=== PATIENT | female | born 1955 | race African-American/Black ===

== ENCOUNTER 2018-01-10 21:31 | Inpatient (IN) | payer OTHER ==
[2018-01-10] VITALS (14 sets, daily range): BP systolic 131–153; BP diastolic 70–82; PULSE 68–78; RESP 15–19; TEMP 99.6; O2SAT 97–100
[~2018-01-10] VITALS: Ht 162.6 cm; Wt 85.4 kg
[~2018-01-10 21:31] MED LIST: ASPI81 PO; METH750T2 PO; NORV5TAB PO
--- NOTE | 2018-01-10 22:10 | RADRPT ---
EXAM DATE/TIME: 01/10/2018 21:57 2 [facility] COMPARISON: CT BRAIN W/O CONTRAST, March 10, 2016, 8:49. INDICATIONS : Stroke alert; left sided weakness. RADIATION DOSE: 36.84 CTDIvol (mGy) This report was called by Dr. Kam to Dr. Lott at 10: 09 PM MEDICAL HISTORY : Non-responsive. SURGICAL HISTORY : Non-responsive. ENCOUNTER: Initial ACUITY: 1 day PAIN SCALE: Non-responsive LOCATION: cranial TECHNIQUE: Multiple contiguous axial images were obtained of the head. Using automated exposure control and adj ustment of the mA and/or kV according to patient size, radiation dose was kept as low as reasonably a chievable to obtain optimal diagnostic quality images. DICOM format image data is available electro nically for review and comparison. FINDINGS: CEREBRUM: The ventricles are normal for age. No evidence of midline shift, mass lesion, hemorrhage or acute in farction. No extra-axial fluid collections are seen. POSTERIOR FOSSA: The cerebellum and brainstem are intact. The 4th ventricle is midline. The cerebellopontine angle i s unremarkable. EXTRACRANIAL: The visualized portion of the orbits is intact. SKULL: The calvaria is intact. No evidence of skull fracture. CONCLUSION: Normal examination for a patient of this age. No significant change has occurred. Gerald Kam MD on January 10, 2018 at 22:06 Board Certified Radiologist. This report was verified electronically.
[2018-01-10] MEDS ORDERED: SODIUM CHLOR 0.9% 250 ML INJ 250 ML IV ONE (22:15)
[2018-01-10] MEDS ORDERED: IOHEXOL 350 MG/ML 10 ML VIAL (for RAD DIAG) IVCONTRAST ONE (22:15)
--- NOTE | 2018-01-10 22:23 | RADRPT ---
EXAM DATE/TIME: 01/10/2018 22:03 [facility] COMPARISON: No previous studies available for comparison. INDICATIONS : Stroke alert; left sided weakness. IV CONTRAST: 75 cc Omnipaque 350 (iohexol) IV ; Cumulative dose for multiple exams. RADIATION DOSE: 27.26 CTDIvol (mGy) ; Combined studies MEDICAL HISTORY : Non-responsive. SURGICAL HISTORY : Non-responsive. ENCOUNTER: Initial ACUITY: 1 day PAIN SCALE: Non-responsive LOCATION: cranial TECHNIQUE: Volumetric scanning was performed using a multi-row detector CT scanner. The data was post processed with a variety of visualization algorithms including full volume maximum intensity projection, multi -planar sliding thin slab reformation, curved planar reformation, and surface rendering techniques. Using automated exposure control and adjustment of the mA and/or kV according to patient size, radiat ion dose was kept as low as reasonably achievable to obtain optimal diagnostic quality images. DICO M format image data is available electronically for review and comparison. FINDINGS: There is excellent visualization of the major intracranial arteries out to the second-order branch ve ssels. There is no evidence for aneurysm, vessel truncation or stenosis, and no evidence for vascula r malformation. CONCLUSION: Normal examination for a patient of this age. Gerald Kam MD on January 10, 2018 at 22:18 Board Certified Radiologist. This report was verified electronically.
[2018-01-10] MEDS ORDERED: ASPIRIN 325 MG TAB PO ONE (22:30)
[2018-01-10] MEDS ORDERED: CLOPIDOGREL 75 MG TAB PO ONE (22:30)
[2018-01-10 22:32] LABS: AUTOMATED NEUTROPHIL # 12.1 TH/MM3 (1.8-7.7); BASOPHIL % 0.2 % (0.0-2.0); EOSINOPHIL % 0.1 % (0.0-4.0); HEMATOCRIT 34.3 % (35.0-46.0); HEMOGLOBIN 11.8 GM/DL (11.6-15.3); LYMPH % 7.4 % (9.0-44.0); MEAN CELL VOLUME 74.2 FL (80.0-100.0); MEAN CORPUSCULAR HEMOGLOBIN 25.5 PG (27.0-34.0); MEAN CORPUSCULAR HGB CONC 34.3 % (32.0-36.0); MEAN PLATELET VOLUME 7.5 FL (7.0-11.0); MONO % 4.5 % (0.0-8.0); MONOCYTE # 0.6 TH/MM3 (0-0.9); NEUT % 87.8 % (16.0-70.0); PLATELET COUNT 265 TH/MM3 (150-450); RED BLOOD COUNT 4.63 MIL/MM3 (4.00-5.30); WHITE BLOOD COUNT 13.8 TH/MM3 (4.0-11.0)
[2018-01-10] MEDS ORDERED: AMLO5 PO (22:32)
[2018-01-10] MEDS ORDERED: ASPI-516 CHEW (22:32)
--- NOTE | 2018-01-10 22:33 | RADRPT ---
EXAM DATE/TIME: 01/10/2018 22:03 [facility] COMPARISON: No previous studies available for comparison. INDICATIONS : Stroke alert; left sided weakness. IV CONTRAST: 75 cc Omnipaque 350 (iohexol) IV ; Cumulative dose for multiple exams. RADIATION DOSE: 27.26 CTDIvol (mGy) ; Combined studies MEDICAL HISTORY : Non-responsive. SURGICAL HISTORY : Non-responsive. ENCOUNTER: Initial ACUITY: 1 day PAIN SCALE: Non-responsive LOCATION: cranial Elevated flow velocities and ICA/CCA ratios have been found to correlate with increased degrees of vessel stenosis, calculated as percentage of diameter relative to a normal segment of distal ICA/CCA. TECHNIQUE: Volumetric scanning was performed using a multirow detector CT scanner. The data was post processed with a variety of visualization algorithms including full-volume maximum intensity projection, multip lanar sliding thin-slab reformation, curved-planar reformation, and surface-rendering techniques. Us ing automated exposure control and adjustment of the mA and/or kV according to patient size, radiatio n dose was kept as low as reasonably achievable to obtain optimal diagnostic quality images. DICOM f ormat image data is available electronically for review and comparison. FINDINGS: AORTIC ARCH: There is a three-vessel origin of the great vessels from the aorta. No evidence of ostial narrowing. RIGHT CAROTID: The common carotid artery is intact. The carotid bulb has a normal configuration without ulceration o r narrowing. The internal carotid artery lumen is smooth without stenosis. The external carotid faby ry is intact. LEFT CAROTID: The common carotid artery is intact. The carotid bulb has a normal configuration without ulceration or narrowing. The internal carotid artery lumen is smooth without stenosis. The external carotid ar linda is intact. VERTEBRALS: Dominant right vertebral. No stenotic lesions are seen. CONCLUSION: 1. No carotid stenosis. Minimal atherosclerotic disease within normal limits for age. Gerald Kam MD on January 10, 2018 at 22:30 Board Certified Radiologist. This report was verified electronically.
[2018-01-10 22:41] LABS: ALBUMIN 3.8 GM/DL (3.4-5.0); AST (GOT) 15 U/L (15-37); BICARBONATE 26.6 MEQ/L (21.0-32.0); BLOOD UREA NITROGEN 11 MG/DL (7-18); CALCIUM 9.4 MG/DL (8.5-10.1); CHLORIDE 106 MEQ/L (98-107); CREATININE 0.97 MG/DL (0.50-1.00); GLOMERULAR FILTRATION RATE 70 ML/MIN (>89); GLUCOSE,RANDOM 105 MG/DL (74-106); SODIUM (NA) 142 MEQ/L (136-145)
[2018-01-10 22:42] LABS: ALT (GPT) 15 U/L (10-53)
[2018-01-10 22:45] LABS: ALKALINE PHOSPHATASE 118 U/L (45-117); TOTAL BILIRUBIN ADULT 0.5 MG/DL (0.2-1.0); TOTAL PROTEIN 7.8 GM/DL (6.4-8.2); TROPONIN I LESS THAN 0.02 NG/ML (0.02-0.05)
--- NOTE | 2018-01-10 22:58 | PD ---
HPI Chief Complaint: Stroke Alert Time Seen by Provider: 21:53 Travel History International Travel<30 days: No Contact w/Intl Traveler<30days: No Traveled to known affect area: No History of Present Illness HPI Patient is a 62-year-old female who today around 2:00 in the afternoon which is 9 hours prior to arrival in the ER had weakness in her left hand and felt her left leg was dragging. 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 And then around 230 she was seen by her family who then reports that this was a new onset she has had mild dysphasia but she has complete comprehension and she speaks in full sentences she is holding her neck slightly off to the left and she has a 3 out of 5 strength in her left hand and a 4 out of 5 left leg. She is able to follow commands eyes opening and closing she is able to cross midline she is outside of the window over 8 hours ago due to her symptoms begin I called Dr. Mathis to activate stroke alert CAT scan was done which was negative CTA of head and neck is done that is also negative she will be admitted I speak with Dr. Mathis about giving her fluid giving her and giving her Plavix and aspirin and admitting her and then having her have an MRI of the brain in the morning we are to keep the bed flat and 75 cc an hour of normal saline will run through the night PFS Past Medical History Blood Disorders: No Cerebrovascular Accident: Yes (1999 & "last year") Diminished Hearing: No Hypertension: Yes Immunizations Current: Yes ?: Not : 5 Para: 5 Past Surgical History Hysterectomy: Yes Other Surgery: Yes (cervical fusion) Social History Alcohol Use: No Tobacco Use: No Substance Use: No Allergies-Medications (Allergen,Severity, Reaction): Coded Allergies: amoxicillin (Unverified Allergy, Severe, HIVES, 01/10/18) clopidogrel (Unverified Allergy, Severe, TONGUE SWELLING, 01/10/18) Uncoded Allergies: APPLE JUICE (Allergy, Unknown, Hives, 12/22/07) Reported Meds & Prescriptions Reported Meds & Active Scripts Active Reported Norvasc (Amlodipine Besylate) 5 Mg Tab 5 Mg PO DAILY Review of Systems Except as stated in HPI: all other systems reviewed are Neg Musculoskeletal: Positive: Weakness Neurologic: Positive: Weakness (Focal weakness left arm and left leg started over 8 hours ago prior to arrival at the ER) Physical Exam Narrative GENERAL: leaning to the left speaking haltedly but in full sentences SKIN: Warm and dry. HEAD: Atraumatic. Normocephalic. EYES: Pupils equal and round. No scleral icterus. No injection or drainage. will cross midline to the left with eyes only when I hold her head still but otherwise she turns her entire head towards my voice on left ENT: No nasal bleeding or discharge. Mucous membranes pink and moist. NECK: Trachea midline. No JVD. weakness to left shoulder shrug CARDIOVASCULAR: Regular rate and rhythm. RESPIRATORY: No accessory muscle use. Clear to auscultation. Breath sounds equal bilaterally. GASTROINTESTINAL: Abdomen soft, non-tender, nondistended. Hepatic and splenic margins not palpable. MUSCULOSKELETAL: weakness 3/5 in left No obvious deformities. NEUROLOGICAL: Awake and alert. Neuro exam she has a decreased grain shoveler on her left hand she has a decreased shrug on her left shoulder and she is unable to fully hold the arm up against gravity she can do it for a moment but then it comes down it is about 3 out of 5 her leg is 4 out of 5 on the left she has no sensory deficit no aphasia no comprehension problems she is able to cross midline with her eyes and a symmetric smile symmetric eyebrow raise. Data Data Last Documented VS Vital Signs Date Time Temp Pulse Resp B/P (MAP) Pulse Ox O2 Delivery O2 Flow Rate FiO2 01/11/18 00:30 72 20 130/62 (84) 100 Room Air 01/10/18 21:52 21 01/10/18 21:32 99.6 Orders Orders Complete Blood Count With Diff (01/10/18 21:54) Comprehensive Metabolic Panel (01/10/18 21:54) Troponin I (01/10/18 21:54) Urinalysis - C+S If Indicated (01/10/18 21:54) Ct Brain W/O Iv Contrast(Rout) (01/10/18 21:54) Ecg Monitoring (01/10/18 21:54) Iv Access Insert/Monitor (01/10/18 21:54) Oximetry (01/10/18 21:54) Sodium Chloride 0.9% Flush (Ns Flush) (01/10/18 22:00) Fibrinogen (01/10/18 21:55) Cta Neck W Iv Contrast W 3d (01/10/18 ) Cta Brain W Iv Contrast W 3d (01/10/18 ) Sodium Chlor 0.9% 250 Ml Inj (Ns 250 Ml (01/10/18 22:15) Iohexol 350 Inj (Omnipaque 350 Inj) (01/10/18 22:15) I-Stat Profile (01/10/18 21:54) Clopidogrel (Plavix) (01/10/18 22:30) Aspirin (Aspirin) (01/10/18 22:30) Sodium Chlor 0.9% 1000 Ml Inj (Ns 1000 M (01/10/18 22:45) Admit Order (Ed Use Only) (01/11/18 00:55) Labs Laboratory Tests Test 01/10/18 21:52 01/10/18 23:45 White Blood Count 13.8 TH/MM3 Red Blood Count 4.63 MIL/MM3 Hemoglobin 11.8 GM/DL Bedside Hemoglobin 12.9 G/DL Hematocrit 34.3 % Bedside Hematocrit 38.0 % Mean Corpuscular Volume 74.2 FL Mean Corpuscular Hemoglobin 25.5 PG Mean Corpuscular Hemoglobin Concent 34.3 % Red Cell Distribution Width 15.0 % Platelet Count 265 TH/MM3 Mean Platelet Volume 7.5 FL Neutrophils (%) (Auto) 87.8 % Lymphocytes (%) (Auto) 7.4 % Monocytes (%) (Auto) 4.5 % Eosinophils (%) (Auto) 0.1 % Basophils (%) (Auto) 0.2 % Neutrophils # (Auto) 12.1 TH/MM3 Lymphocytes # (Auto) 1.0 TH/MM3 Monocytes # (Auto) 0.6 TH/MM3 Eosinophils # (Auto) 0.0 TH/MM3 Basophils # (Auto) 0.0 TH/MM3 CBC Comment DIFF FINAL Differential Comment Fibrinogen 442 mg/dL Bedside Sodium 143 MMOL/L Blood Urea Nitrogen 11 MG/DL Creatinine 0.97 MG/DL Random Glucose 105 MG/DL Total Protein 7.8 GM/DL Albumin 3.8 GM/DL Calcium Level 9.4 MG/DL Alkaline Phosphatase 118 U/L Aspartate Amino Transf (AST/SGOT) 15 U/L Alanine Aminotransferase (ALT/SGPT) 15 U/L Total Bilirubin 0.5 MG/DL Sodium Level 142 MEQ/L Potassium Level 3.6 MEQ/L Chloride Level 106 MEQ/L Carbon Dioxide Level 26.6 MEQ/L Bedside Potassium 3.7 MMOL/L Bedside Chloride 105 MMOL/L Anion Gap 9 MEQ/L Bedside Blood Urea Nitrogen 10 MG/DL Bedside Creatinine 1.0 MG/DL Estimat Glomerular Filtration Rate 70 ML/MIN Bedside Glucose 113 MG/DL Troponin I LESS THAN 0.02 NG/ML Urine Color LIGHT-YELLOW Urine Turbidity CLEAR Urine pH 7.0 Urine Specific [place] 1.044 Urine Protein NEG mg/dL Urine Glucose (UA) NEG mg/dL Urine Ketones 10 mg/dL Urine Occult Blood SMALL Urine Nitrite NEG Urine Bilirubin NEG Urine Urobilinogen LESS THAN 2.0 MG/DL Urine Leukocyte Esterase MOD Urine RBC 3 /hpf Urine WBC 2 /hpf Urine Squamous Epithelial Cells <1 /hpf Urine Transitional Epithelial Cells <1 /hpf Microscopic Urinalysis Comment CATH-CULT NOT IND MDM Medical Decision Making Medical Screen Exam Complete: Yes Emergency Medical Condition: Yes Medical Record Reviewed: Yes Differential Diagnosis Differential diagnosis includes hypoglycemia Michel's paralysis CVA ischemic stroke hemorrhagic stroke Narrative Course I activate stroke alert I speak to Dr. Mathis Neurology . CT of head negative CTA head and neck negative we discussed admitting and giving her fluid keeping her bed flat giving her Plavix 75 aspirin 325 and having him see her in the a.m. MRI of the head will be ordere as well admit.... she is well outside of time constraint to give tPa thrombolytics Diagnosis Primary Impression: CVA (cerebral vascular accident) Qualified Codes: I63.9 - Cerebral infarction, unspecified Scripts Dipyridamole-Aspirin (Aggrenox) 200-25 Mg Cap 1 CAP PO BID for Blood Clot Prevention, #42 CAP 0 Refills Prov: Cookie Cali 01/13/18 Asim Lott MD Jan 10, 2018 22:58
[2018-01-10] MEDS: SODIUM CHLOR 0.9% 1000 ML INJ 1,000 ML IV SCH (23:32)
[2018-01-10] MEDS: SODIUM CHLORIDE 0.9% FLUSH 10 ML FLUSH IVF PRN (23:34)
[2018-01-11] VITALS (11 sets, daily range): BP systolic 116–145; BP diastolic 62–76; PULSE 66–72; RESP 16–20; TEMP 98–98.9; O2SAT 97–100
[2018-01-11 00:11] LABS: BILIRUBIN, URINE NEG (NEG); BLOOD, URINE SMALL (NEG); GLUCOSE,URINE NEG (NEG); KETONE, URINE 10 mg/dL (NEG); NITRITE,URINE NEG (NEG); SQUAMOUS EPITHELIAL CELL URINE <1 /hpf (0-5); TRANSITIONAL EPI CELLS, URINE <1 /hpf; URINE COLOR LIGHT-YELLOW (YELLW/STRAW); URINE LEUKOCYTE ESTERASE MOD (NEG)
--- NOTE | 2018-01-11 08:35 | MH ---
cc: REX FISH M.D. DATE OF ADMISSION 01/11/2018 ADMISSION DIAGNOSIS 1. CVA with left-sided weakness. 2. Hypertension. 3. Obesity. 4. Hyperlipidemia. PERTINENT HISTORY This is a 62-year-old black female who came to the emergency room last evening with symptoms of left-sided weakness. She started in the afternoon around 2:00 p.m. with weakness in her left arm and her left leg was dragging. 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 She was seen by her family and it is noted she had a little trouble with her speech. She did not come to the ER until around 9:30 and was evaluated. She had symptoms of a stroke. The ER physician talked with Dr. Mathis, neurologist. Her CT brain scan was negative. CTA of the head and neck was negative. She was given aspirin in the ED 325 mg. An MRI of the brain was ordered which has not been done yet. She was put on 75 cc of normal saline. She was admitted for probable stroke. PAST MEDICAL HISTORY 1. Stroke in 1999 and 1015 with no obvious residual symptoms. 2. Hypertension. 3. Hyperlipidemia. 4. Vitamin-D deficiency in the past. 5. Osteoarthritis. 6. Atherosclerosis of the aorta on prior imaging. She denies any heart disease, lung disease, liver or kidney disease. No peptic ulcer disease or colon disease. No thyroid disease or cancer. No seizures. PAST SURGICAL HISTORY 1. Cervical fusion. 2. JAREN and BSO. ALLERGIES 1. PLAVIX; APPARENTLY CAUSED HER TONGUE TO SWELL. 2. AMOXICILLIN. MEDICATIONS 1. Amlodipine 5 mg a day. 2. Aspirin 81 mg a day. 3. Atorvastatin 10 mg a day. 4. Her EEA chart had her on ergocalciferol 50,000 units once a week. FAMILY HISTORY Her mother and father are living. Mother is 82, has had a heart attack and hypertension. Father is living at 85, has had prior stroke, heart attack and hypertension. SOCIAL HISTORY She is . She has had five children. She does not use alcohol, has never smoked. Works as a operating room aide at [employer] REVIEW OF SYSTEMS GENERAL: No fever, chills, sweats. Denies any headache. HEENT: No visual complaints or sore throat or runny nose. CARDIOVASCULAR: No chest pain, orthopnea, PND or palpitations. PULMONARY: No cough, hemoptysis, wheezing. GASTROINTESTINAL: No nausea, vomiting, abdominal pain, rectal bleeding or constipation. GENITOURINARY: No dysuria, urgency, frequency. MUSCULOSKELETAL: No complaint of swelling or pain. PSYCHIATRIC: Without complaints. NEUROLOGIC: As mentioned. PHYSICAL EXAMINATION GENERAL: A pleasant black female in no distress. She appears to be alert and oriented. VITAL SIGNS: Most recent vital signs are temperature 98.7, BP 145/70, respirations 17, pulse 68 and regular. O2 sat 97% on room air. HEENT: TMs clear. Pupils equal. No scleral icterus. Nose negative. Mouth with upper dentures, no lesions. Tongue midline. NECK: Without JVD. No bruit. HEART: Regular rate and rhythm. No murmurs. LUNGS: Clear. ABDOMEN: Soft, nontender, no masses. EXTREMITIES: Pulses 2+ in both feet. No edema. NEUROLOGIC: She has significant weakness in the left arm and hand and left lower leg. She had difficulty even moving them. Cranial nerves appear intact. She is alert and oriented. LABORATORY Last night her white count was 13.8, hemoglobin 11.8. Electrolytes, BUN and creatinine were normal, random glucose 113. AST, ALT and alkaline phosphatase normal. Troponin less than 0.02. Total protein and albumin normal. Bilirubin normal. Urinalysis just showed 3 rbc's, [address] brain scan was negative. CTA of the neck was negative. CTA of the head was negative. ASSESSMENT As noted. PLAN The patient has been admitted. A consult with neurology has been obtained. MRI brain will be done today. Will order a 2-D echo. She will be continued on her statin drug. Her blood pressure medicine was not resumed last night and her blood pressure is adequate. She is at bedrest with head of bed slightly elevated. She has HEAVENLY hose and SCDs on for DVT prophylaxis. MD YAN España/AMRITA /6:22 AM /8:01 AM
--- NOTE | 2018-01-11 08:45 | HHI.HP ---
HPI Service [facility] Hospitalists Primary Care Physician Shady Mosher MD Admission Diagnosis CVA Travel History International Travel<30 Days: No Contact w/Intl Traveler <30 Da: No Traveled to Known Affected Are: No History of Present Illness This is a 63-year-old AA female with a past medical history includes hypertension, prior CVA 2 and prior [place]. Patient symptoms started around 2:00 PM yesterday (01/10). Patient began having weakness in her left hand and felt that her left leg was dragging. 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 Then around 2:30PM she was seen by her family who noticed that she mild dysphasia. Upon arrival to the ER patient was holding her neck slightly off to the left and she had a 3 out of 5 strength in her left hand and a 4 out of 5 left leg. She was able to follow commands eyes opening and closing she is able to cross midline she was outside of the TPA. Dr. Mathis to activate stroke alert CT scan was done which was negative CTA of head and neck is done that is also negative she was admitted given her fluids, Plavix and aspirin Plan for patient to have an MRI of the brain in this morning. Past Family Social History Past Medical History Hypertension History of CVA 2 no residual deficits History of [place] Past Surgical History Status post hysterectomy Status post anterior cervical decompression C3/C4, microdiscectomy with fusion secondary to herniated nucleus pulposus with cervical radiculopathy bilaterally Reported Medications Aspirin 81 Mg Chew 81 Mg CHEW DAILY Norvasc (Amlodipine Besylate) 5 Mg Tab 5 Mg PO DAILY Allergies: Coded Allergies: amoxicillin (Unverified Allergy, Severe, HIVES, 01/10/18) clopidogrel (Unverified Allergy, Severe, TONGUE SWELLING, 01/10/18) Uncoded Allergies: APPLE JUICE (Allergy, Unknown, Hives, 12/22/07) Family History Father with CVA and [place] Social History Works as a assistant men's soccer coach No tobacco, alcohol or IV drug use Physical Exam Vital Signs Vital Signs Date Time Temp Pulse Resp B/P (MAP) Pulse Ox O2 Delivery O2 Flow Rate FiO2 01/11/18 05:05 98.7 68 17 145/70 (95) 97 01/11/18 03:01 73 19 133/66 (88) 98 01/11/18 02:00 72 20 128/65 (86) 98 Room Air 01/11/18 01:30 70 18 123/62 (82) 99 Room Air 01/11/18 01:00 72 18 128/66 (86) 99 Room Air 01/11/18 00:30 72 20 130/62 (84) 100 Room Air 01/11/18 00:00 70 16 136/76 (96) 99 Room Air 01/10/18 23:45 72 19 149/78 (101) 98 Room Air 01/10/18 23:30 69 17 141/72 (95) 97 Room Air 01/10/18 23:15 70 18 143/72 (95) 98 Room Air 01/10/18 23:00 74 15 148/80 (102) 98 Room Air 01/10/18 22:45 68 16 146/74 (98) 97 Room Air 01/10/18 22:30 72 16 144/76 (98) 98 Room Air 01/10/18 22:15 74 18 150/72 (98) 100 Room Air 01/10/18 22:13 78 19 153/74 (100) 100 Room Air 01/10/18 22:05 71 16 131/71 (91) 100 Room Air 01/10/18 22:00 69 18 133/70 (91) 100 Room Air 01/10/18 21:55 71 16 136/71 (92) 100 Room Air 01/10/18 21:52 100 21 01/10/18 21:50 78 15 98 01/10/18 21:32 99.6 76 16 137/82 (100) 98 Room Air Laboratory Laboratory Tests Test 01/10/18 21:52 01/10/18 23:45 White Blood Count 13.8 Red Blood Count 4.63 Hemoglobin 11.8 Bedside Hemoglobin 12.9 Hematocrit 34.3 Bedside Hematocrit 38.0 Mean Corpuscular Volume 74.2 Mean Corpuscular Hemoglobin 25.5 Mean Corpuscular Hemoglobin Concent 34.3 Red Cell Distribution Width 15.0 Platelet Count 265 Mean Platelet Volume 7.5 Neutrophils (%) (Auto) 87.8 Lymphocytes (%) (Auto) 7.4 Monocytes (%) (Auto) 4.5 Eosinophils (%) (Auto) 0.1 Basophils (%) (Auto) 0.2 Neutrophils # (Auto) 12.1 Lymphocytes # (Auto) 1.0 Monocytes # (Auto) 0.6 Eosinophils # (Auto) 0.0 Basophils # (Auto) 0.0 CBC Comment DIFF FINAL Differential Comment Fibrinogen 442 Bedside Sodium 143 Blood Urea Nitrogen 11 Creatinine 0.97 Random Glucose 105 Total Protein 7.8 Albumin 3.8 Calcium Level 9.4 Alkaline Phosphatase 118 Aspartate Amino Transf (AST/SGOT) 15 Alanine Aminotransferase (ALT/SGPT) 15 Total Bilirubin 0.5 Sodium Level 142 Potassium Level 3.6 Chloride Level 106 Carbon Dioxide Level 26.6 Bedside Potassium 3.7 Bedside Chloride 105 Anion Gap 9 Bedside Blood Urea Nitrogen 10 Bedside Creatinine 1.0 Estimat Glomerular Filtration Rate 70 Bedside Glucose 113 Troponin I LESS THAN 0.02 Urine Color LIGHT-YELLOW Urine Turbidity CLEAR Urine pH 7.0 Urine Specific [place] 1.044 Urine Protein NEG Urine Glucose (UA) NEG Urine Ketones 10 Urine Occult Blood SMALL Urine Nitrite NEG Urine Bilirubin NEG Urine Urobilinogen LESS THAN 2.0 Urine Leukocyte Esterase MOD Urine RBC 3 Urine WBC 2 Urine Squamous Epithelial Cells <1 Urine Transitional Epithelial Cells <1 Microscopic Urinalysis Comment CATH-CULT NOT IND Result Diagram: 01/10/18215101/10/182151 Imaging Last Impressions Head CT 01/10/182153 Signed Impressions: Service Date/Time: December 21:57 - CONCLUSION: Normal examination for a patient of this age. No significant change has occurred. Gerald Kam MD Neck CTA 01/10/18 0000 Signed Impressions: Service Date/Time: December 22:03 - CONCLUSION: 1. No carotid stenosis. Minimal atherosclerotic disease within normal limits for age. Gerald Kam MD Head CTA 01/10/18 0000 Signed Impressions: Service Date/Time: December 22:03 - CONCLUSION: Normal examination for a patient of this age. Gerald Kam MD Caprini VTE Risk Assessment Caprini VTE Risk Assessment: Mod/High Risk (score >= 2) Caprini Risk Assessment Model Point Value = 1 Point Value = 2 Point Value = 3 Point Value = 5 Age 41-60 Minor surgery BMI > 25 kg/m2 Swollen legs Varicose veins or History of unexplained or recurrent spontaneous Oral contraceptives or hormone replacement Sepsis (< 1 month) Serious lung disease, including pneumonia (< 1 month) Abnormal pulmonary function Acute myocardial infarction Congestive heart failure (< 1 month) History of inflammatory bowel disease Medical patient at bed rest Age 61-74 Arthroscopic surgery Major open surgery (> 45 min) Laparoscopic surgery (> 45 min) Malignancy Confined to bed (> 72 hours) Immobilizing plaster cast Central venous access Age >= 75 History of VTE Family history of VTE Factor V Leiden Prothrombin [id number] Lupus anticoagulant Anticardiolipin antibodies Elevated serum homocysteine Heparin-induced thrombocytopenia Other congenital or acquired thrombophilia Stroke (< 1 month) Elective arthroplasty Hip, pelvis, or leg fracture Acute spinal cord injury (< 1 month) Prophylaxis Regimen Total Risk Factor Score Risk Level Prophylaxis Regimen 0-1 Low Early ambulation 2 Moderate Order ONE of the following: *Sequential Compression Device (SCD) *Heparin 5000 units SQ BID 3-4 Higher Order ONE of the following medications: *Heparin 5000 units SQ TID *Enoxaparin/Lovenox 40 mg SQ daily (WT < 150 kg, CrCl > 30 mL/min) *Enoxaparin/Lovenox 30 mg SQ daily (WT < 150 kg, CrCl > 10-29 mL/min) *Enoxaparin/Lovenox 30 mg SQ BID (WT < 150 kg, CrCl > 30 mL/min) AND/OR *Sequential Compression Device (SCD) 5 or more Highest Order ONE of the following medications: *Heparin 5000 units SQ TID (Preferred with Epidurals) *Enoxaparin/Lovenox 40 mg SQ daily (WT < 150 kg, CrCl > 30 mL/min) *Enoxaparin/Lovenox 30 mg SQ daily (WT < 150 kg, CrCl > 10-29 mL/min) *Enoxaparin/Lovenox 30 mg SQ BID (WT < 150 kg, CrCl > 30 mL/min) AND *Sequential Compression Device (SCD) Assessment and Plan Problem List: (1) CVA (cerebral vascular accident) ICD Codes: I63.9 - Cerebral infarction, unspecified Status: Acute Plan: CT of the head reviewed and revealed normal exam for patient of this age no significant changes occurred. CTA of the neck reviewed and reveals no carotid stenosis minimal atherosclerotic disease within normal limits for age CT of the head reviewed and reveals normal examination for patient of this age MRI ordered and pending Echocardiogram pending NPO Head of bed flat Normal saline at 75 cc/h Neurology has been consulted PT/OT and Speech requested (2) Hypertension ICD Codes: I10 - Essential (primary) hypertension Status: Chronic Plan: allow permissive HTN (3) CAD (coronary artery disease) ICD Codes: I25.10 - Atherosclerotic heart disease of [place] coronary artery without angina pectoris Plan: Continue patient Plavix and aspirin Physician Certification 2 Midnight Certification Type: Admission for Inpatient Services Order for Inpatient Services The services are ordered in accordance with Medicare regulations or non- Medicare payer requirements, as applicable. In the case of services not specified as inpatient-only, they are appropriately provided as inpatient services in accordance with the 2-midnight benchmark. Estimated LOS (days): 3 days is the estimated time the patient will need to remain in the hospital, assuming treatment plan goals are met and no additional complications. Post-Hospital Plan: Not yet determined Cookie Cali Jan 11, 2018 08:45
[2018-01-11] MEDS ORDERED: ASPIRIN EC 325 MG TABEC PO SCH (09:00)
[2018-01-11] MEDS: SODIUM CHLOR 0.9% 1000 ML INJ 1,000 ML IV SCH (09:00)
[2018-01-11] MEDS: SODIUM CHLORIDE 0.9% FLUSH 10 ML FLUSH IVF PRN (09:01)
[2018-01-11] MEDS: LORazepam 2 MG/ML VIAL IV PUSH PRN ×2 (11:03→20:06)
[2018-01-11] MEDS: ATORVASTATIN 40 MG TAB PO SCH (11:03)
--- NOTE | 2018-01-11 12:23 | RADRPT ---
EXAM DATE/TIME: 01/11/2018 11:37 [facility] COMPARISON: No previous studies available for comparison. INDICATIONS : Left sided weakness. MEDICAL HISTORY : Hypertension. SURGICAL HISTORY : Fusion, cervical. Hysterectomy. ENCOUNTER: Subsequent ACUITY: 2 day PAIN SCORE: 0/10 LOCATION: cranial TECHNIQUE: Multiplanar, multisequence MRI of the brain was performed without contrast. FINDINGS: CEREBRUM: The ventricles are normal for age. No evidence of midline shift, mass lesion, hemorrhage or acute in farction. No extraaxial fluid collections are seen. The pituitary gland and suprasellar cistern are normal in configuration. WHITE MATTER: There were minimal punctate areas of periventricular and subcortical white matter signal change. POSTERIOR FOSSA: The cerebellum and brainstem demonstrate no abnormality. The 4th ventricle is midline. The cerebello pontine angle is unremarkable. The cerebellar tonsils are normal in position. DIFFUSION IMAGING: No focal areas of restricted diffusion are seen. No evidence of acute infarction. EXTRACRANIAL: The visualized portions of the orbits and paranasal sinuses are unremarkable. CONCLUSION: No acute intracranial abnormality is identified. There are no findings to indicate recent ischemia. Oscar Dave MD on January 11, 2018 at 12:17 Board Certified Radiologist. This report was verified electronically.
--- NOTE | 2018-01-11 17:11 | HHI.PR ---
Subjective Remarks Patient continues to have left upper and lower extremity weakness Speech slow but clear Patient offers no new complaints Objective Vitals Vital Signs Date Time Temp Pulse Resp B/P (MAP) Pulse Ox O2 Delivery O2 Flow Rate FiO2 01/11/18 12:00 98.5 71 16 116/72 (87) 99 01/11/18 08:00 98.9 68 18 122/71 (88) 98 01/11/18 05:05 98.7 68 17 145/70 (95) 97 01/11/18 03:01 73 19 133/66 (88) 98 01/11/18 02:00 72 20 128/65 (86) 98 Room Air 01/11/18 01:30 70 18 123/62 (82) 99 Room Air 01/11/18 01:00 72 18 128/66 (86) 99 Room Air 01/11/18 00:30 72 20 130/62 (84) 100 Room Air 01/11/18 00:00 70 16 136/76 (96) 99 Room Air 01/10/18 23:45 72 19 149/78 (101) 98 Room Air 01/10/18 23:30 69 17 141/72 (95) 97 Room Air 01/10/18 23:15 70 18 143/72 (95) 98 Room Air 01/10/18 23:00 74 15 148/80 (102) 98 Room Air 01/10/18 22:45 68 16 146/74 (98) 97 Room Air 01/10/18 22:30 72 16 144/76 (98) 98 Room Air 01/10/18 22:15 74 18 150/72 (98) 100 Room Air 01/10/18 22:13 78 19 153/74 (100) 100 Room Air 01/10/18 22:05 71 16 131/71 (91) 100 Room Air 01/10/18 22:00 69 18 133/70 (91) 100 Room Air 01/10/18 21:55 71 16 136/71 (92) 100 Room Air 01/10/18 21:52 100 21 01/10/18 21:50 78 15 98 01/10/18 21:32 99.6 76 16 137/82 (100) 98 Room Air 01/11/18 01/11/18 01/12/18 15:00 23:00 07:00 Intake Total 905 ml Balance 905 ml Intake IV Total 905 ml Result Diagram: 01/10/18215101/10/182151 Other Results Laboratory Tests Test 01/10/18 21:52 01/10/18 23:45 White Blood Count 13.8 TH/MM3 Red Blood Count 4.63 MIL/MM3 Hemoglobin 11.8 GM/DL Bedside Hemoglobin 12.9 G/DL Hematocrit 34.3 % Bedside Hematocrit 38.0 % Mean Corpuscular Volume 74.2 FL Mean Corpuscular Hemoglobin 25.5 PG Mean Corpuscular Hemoglobin Concent 34.3 % Red Cell Distribution Width 15.0 % Platelet Count 265 TH/MM3 Mean Platelet Volume 7.5 FL Neutrophils (%) (Auto) 87.8 % Lymphocytes (%) (Auto) 7.4 % Monocytes (%) (Auto) 4.5 % Eosinophils (%) (Auto) 0.1 % Basophils (%) (Auto) 0.2 % Neutrophils # (Auto) 12.1 TH/MM3 Lymphocytes # (Auto) 1.0 TH/MM3 Monocytes # (Auto) 0.6 TH/MM3 Eosinophils # (Auto) 0.0 TH/MM3 Basophils # (Auto) 0.0 TH/MM3 CBC Comment DIFF FINAL Differential Comment Fibrinogen 442 mg/dL Bedside Sodium 143 MMOL/L Blood Urea Nitrogen 11 MG/DL Creatinine 0.97 MG/DL Random Glucose 105 MG/DL Total Protein 7.8 GM/DL Albumin 3.8 GM/DL Calcium Level 9.4 MG/DL Alkaline Phosphatase 118 U/L Aspartate Amino Transf (AST/SGOT) 15 U/L Alanine Aminotransferase (ALT/SGPT) 15 U/L Total Bilirubin 0.5 MG/DL Sodium Level 142 MEQ/L Potassium Level 3.6 MEQ/L Chloride Level 106 MEQ/L Carbon Dioxide Level 26.6 MEQ/L Bedside Potassium 3.7 MMOL/L Bedside Chloride 105 MMOL/L Anion Gap 9 MEQ/L Bedside Blood Urea Nitrogen 10 MG/DL Bedside Creatinine 1.0 MG/DL Estimat Glomerular Filtration Rate 70 ML/MIN Bedside Glucose 113 MG/DL Troponin I LESS THAN 0.02 NG/ML Urine Color LIGHT-YELLOW Urine Turbidity CLEAR Urine pH 7.0 Urine Specific [place] 1.044 Urine Protein NEG mg/dL Urine Glucose (UA) NEG mg/dL Urine Ketones 10 mg/dL Urine Occult Blood SMALL Urine Nitrite NEG Urine Bilirubin NEG Urine Urobilinogen LESS THAN 2.0 MG/DL Urine Leukocyte Esterase MOD Urine RBC 3 /hpf Urine WBC 2 /hpf Urine Squamous Epithelial Cells <1 /hpf Urine Transitional Epithelial Cells <1 /hpf Microscopic Urinalysis Comment CATH-CULT NOT IND Imaging Last Impressions Head CT 01/10/182153 Signed Impressions: Service Date/Time: December 21:57 - CONCLUSION: Normal examination for a patient of this age. No significant change has occurred. Gerald Kam MD Neck CTA 01/10/18 0000 Signed Impressions: Service Date/Time: December 22:03 - CONCLUSION: 1. No carotid stenosis. Minimal atherosclerotic disease within normal limits for age. Gerald Kam MD Head CTA 01/10/18 0000 Signed Impressions: Service Date/Time: December 22:03 - CONCLUSION: Normal examination for a patient of this age. Gerald Kam MD Objective Remarks GENERAL: This is a well-nourished, well-developed patient CARDIOVASCULAR: Regular rate and rhythm RESPIRATORY: Clear to auscultation. Breath sounds equal bilaterally. GASTROINTESTINAL: Abdomen soft, non-tender, nondistended. Normal active bowel sounds MUSCULOSKELETAL: Extremities without clubbing, cyanosis, or edema. NEURO: Alert & Oriented. left upper extremity 3/5, left lower extremity 1/5. speech slow but clear A/P Problem List: (1) CVA (cerebral vascular accident) ICD Codes: I63.9 - Cerebral infarction, unspecified Status: Acute Plan: CT of the head reviewed and revealed normal exam for patient of this age no significant changes occurred. CTA of the neck reviewed and reveals no carotid stenosis minimal atherosclerotic disease within normal limits for age CT of the head reviewed and reveals normal examination for patient of this age MRI revealed no acute intracranial abnormality is identified. There are no findings to indicate recent ischemia. Echocardiogram pending NPO awaiting speech therapy Head of bed flat Normal saline at 75 cc/h Neurology has been consulted PT/OT and Speech requested (2) Hypertension ICD Codes: I10 - Essential (primary) hypertension Status: Chronic Plan: allow permissive HTN (3) CAD (coronary artery disease) ICD Codes: I25.10 - Atherosclerotic heart disease of [place] coronary artery without angina pectoris Plan: Continue patient on aspirin. Unable to start Plavix patient is allergic and has had tongue swelling with Plavix in the past Assessment and Plan Patient examined. Assessment and plan formulated with Cookie Cali PA-C. I agree with the above. Pt with continued left sided weakness. plavix allergy Pt started on Aggrenox per Neurology continue PT Pt will need SNF or acute rehab at the conclusion of current hospitalization. Cookie Cali Jan 11, 2018 17:11 Torres Flores DO Jan 11, 2018 23:38
[2018-01-11] MEDS ORDERED: SODIUM CHLORIDE 0.9% FLUSH 10 ML FLUSH IV FLUSH PRN (18:45)
[2018-01-11] MEDS ORDERED: DEXTROSE 50% IN WATER 50 ML VIAL(D50) IV PUSH PRN (18:45)
[2018-01-11] MEDS ORDERED: GLUCAGON 1 MG/ML VIAL OTHER PRN (18:45)
--- NOTE | 2018-01-11 19:28 | MB ---
cc: ROSITA DUGGAN DATE OF CONSULTATION 01/11/18 REASON FOR CONSULTATION Stroke HISTORY OF PRESENT ILLNESS Ms. Gunderson is a 62-year-old female who developed the acute onset of left-sided weakness yesterday around 2 o'clock in the afternoon. She was weak in the left hand and the left leg was dragging. She came into the hospital as a stroke alert. She was outside of the window for t-PA in that the episodes were about 8 or 9 hours prior to arrival. Her symptoms she feels are slightly better today. PAST MEDICAL HISTORY 1. History of stroke in the past in the year 1999 and a year ago, 2. Hysterectomy, 3. Cervical fusion ALLERGIES AMOXICILLIN PLAVIX MEDICATIONS At home, 1. Aspirin 81 mg daily. 2. Norvasc 5 mg daily. NEUROLOGIC EXAMINATION VITAL SIGNS: Blood pressure 133/76, pulse is 66, respiratory rate is 16, temperature 98 degrees. Higher cortical function - alert, oriented. Speech is normal. Cranial nerves intact. Motor exam 4/5 strength of left arm and left leg proximally and distally with decreased fine motor skills left hand. Normal strength on the right. Reflexes are 2+ symmetric. IMAGING STUDIES CT scan of the brain is within normal limits. CTA of the brain is normal. CTA neck - no significant stenosis. Brain MRI - no acute change is present. No acute stroke. LABORATORY DATA The white count is 13,800, hemoglobin 11.8, hematocrit 34%, platelet count 265,000. Sodium is 143, potassium 3.7, chloride 105, CO2 26.6, the BUN is 10, creatinine 0.97, GFR is 70, glucose 105, AST 15, ALT is 15. CARDIOLOGY STUDIES Her EKG is sinus rhythm. IMPRESSION Probable stroke, although the brain MRI is negative. This may have been a small lacunar stroke. I would recommend getting a cervical spine MRI to be sure there is no cord involvement however. She has an ALLERGY TO PLAVIS. She was on aspirin. I would therefore recommend Aggrenox one b.i.d. Continue to monitor cardiac telemetry to be sure there is no sign of A. Fib. Also check a lipid panel. The CTA of the neck does not reveal any significant carotid stenosis. MD PHIL Tobar/ /6:28 PM /7:16 PM
[2018-01-11] MEDS: DIPYRIDAMOLE/ASPIRIN 200 MG/25 MG CAP PO SCH (20:05)
[2018-01-11] MEDS: INSULIN ASPART SUPPLEMENTAL SCALE SQ SCH (20:06)
[2018-01-11] MEDS: SODIUM CHLORIDE 0.9% FLUSH 10 ML FLUSH IV FLUSH SCH (20:06)
--- NOTE | 2018-01-11 22:10 | RADRPT ---
EXAM DATE/TIME: 01/11/2018 20:33 [facility] COMPARISON: No previous studies available for comparison. INDICATIONS : Myelopathy. MEDICAL HISTORY : Hypertension. SURGICAL HISTORY : Fusion, cervical. Hysterectomy. ENCOUNTER: Subsequent ACUITY: 2 day PAIN SCORE: 0/10 LOCATION: neck TECHNIQUE: Multiplanar, multisequence MRI examination of the cervical spine was performed. FINDINGS: At C2-3 there is no significant abnormality. At C3-4 there is previous fusion with effacement of the thecal sac without cord impingement. At C4-5 there is a mild disc bulge with minimal impression on the cord. No foraminal stenosis. At C5-6 there is a broad-based posterior disc protrusion resulting in a moderate AP canal stenosis wi th mild cord compression and mild lateral recess and foraminal stenosis. At C6-7 there is a mild posterior disc protrusion with mild canal stenosis and mild flattening of the cord. Mild lateral recess encroachment. At C7-T1 there is no significant adenopathy. CONCLUSION: 1. At C5-6 there is a moderate-sized broad-based disc protrusion resulting in moderate canal stenosis and cord compression and flattening. 2. At C3-4 there is previous fusion. 3. At C6-7 there is a mild disc protrusion with mild stenosis and mild impression on the cervical cor d. 4. No acute fracture. No cord signal abnormality. Gerald Kam MD on January 11, 2018 at 22:05 Board Certified Radiologist. This report was verified electronically.
[2018-01-11] MEDS: ACETAMINOPHEN 500 MG CPLT PO PRN (23:59)
[2018-01-12] VITALS (10 sets, daily range): BP systolic 118–148; BP diastolic 70–80; PULSE 69–84; RESP 16–20; TEMP 97.7–99.2; O2SAT 95–98
--- NOTE | 2018-01-12 00:20 | EKG ---
Date Performed: 01/10/2018 Time Performed: 21:54:29 PTAGE: 62 years EKG: Sinus rhythm WITH SINUS ARRHYTHMIA MODERATE VOLTAGE CRITERIA FOR LVH, CONSIDER NORMAL VARIANT BORDERLINE ECG Sinc e the prior tracing, there has been no significant change DOCTOR: Shelley Lucero Interpretating Date/Time 01/12/2018 00:18:45
[2018-01-12] MEDS: SODIUM CHLOR 0.9% 1000 ML INJ 1,000 ML IV SCH (02:16)
[2018-01-12] MEDS: INSULIN ASPART SUPPLEMENTAL SCALE SQ SCH ×4 (08:00→20:25)
[2018-01-12] MEDS: DIPYRIDAMOLE/ASPIRIN 200 MG/25 MG CAP PO SCH ×2 (08:21→20:24)
[2018-01-12] MEDS: ATORVASTATIN 40 MG TAB PO SCH (08:22)
[2018-01-12] MEDS: SODIUM CHLORIDE 0.9% FLUSH 10 ML FLUSH IV FLUSH SCH ×2 (08:22→20:35)
[2018-01-12 09:01] LABS: CHOLESTEROL/ HDL RATIO 1.86 RATIO; HDL CHOLESTEROL 76.8 MG/DL (40.0-60.0)
[2018-01-12] MEDS: ACETAMINOPHEN 500 MG CPLT PO PRN ×2 (10:56→18:15)
--- NOTE | 2018-01-12 12:55 | HHI.PR ---
Subjective Remarks Patient resting upon entering the room. Awoke easily with verbal stimuli reports feeling fatigued, no other complaints Objective Vitals Vital Signs Date Time Temp Pulse Resp B/P (MAP) Pulse Ox O2 Delivery O2 Flow Rate FiO2 01/12/18 12:27 96 01/12/18 12:12 98.0 75 18 141/71 (94) 96 01/12/18 10:15 75 01/12/18 08:57 97.8 69 18 121/71 (88) 98 01/12/18 04:16 97.8 80 20 118/70 (86) 95 01/12/18 03:10 84 01/12/18 00:04 99.2 83 16 148/80 (102) 96 01/11/18 20:00 98.6 68 18 133/67 (89) 97 01/11/18 16:00 98.0 66 16 133/76 (95) 98 Result Diagram: 01/10/18215101/10/182151 Other Results Laboratory Tests Test 01/10/18 21:52 01/10/18 23:45 01/11/18 20:17 01/12/18 07:58 White Blood Count 13.8 TH/MM3 Red Blood Count 4.63 MIL/MM3 Hemoglobin 11.8 GM/DL Bedside Hemoglobin 12.9 G/DL Hematocrit 34.3 % Bedside Hematocrit 38.0 % Mean Corpuscular Volume 74.2 FL Mean Corpuscular Hemoglobin 25.5 PG Mean Corpuscular Hemoglobin Concent 34.3 % Red Cell Distribution Width 15.0 % Platelet Count 265 TH/MM3 Mean Platelet Volume 7.5 FL Neutrophils (%) (Auto) 87.8 % Lymphocytes (%) (Auto) 7.4 % Monocytes (%) (Auto) 4.5 % Eosinophils (%) (Auto) 0.1 % Basophils (%) (Auto) 0.2 % Neutrophils # (Auto) 12.1 TH/MM3 Lymphocytes # (Auto) 1.0 TH/MM3 Monocytes # (Auto) 0.6 TH/MM3 Eosinophils # (Auto) 0.0 TH/MM3 Basophils # (Auto) 0.0 TH/MM3 CBC Comment DIFF FINAL Differential Comment Fibrinogen 442 mg/dL Bedside Sodium 143 MMOL/L Blood Urea Nitrogen 11 MG/DL Creatinine 0.97 MG/DL Random Glucose 105 MG/DL Total Protein 7.8 GM/DL Albumin 3.8 GM/DL Calcium Level 9.4 MG/DL Alkaline Phosphatase 118 U/L Aspartate Amino Transf (AST/SGOT) 15 U/L Alanine Aminotransferase (ALT/SGPT) 15 U/L Total Bilirubin 0.5 MG/DL Sodium Level 142 MEQ/L Potassium Level 3.6 MEQ/L Chloride Level 106 MEQ/L Carbon Dioxide Level 26.6 MEQ/L Bedside Potassium 3.7 MMOL/L Bedside Chloride 105 MMOL/L Anion Gap 9 MEQ/L Bedside Blood Urea Nitrogen 10 MG/DL Bedside Creatinine 1.0 MG/DL Estimat Glomerular Filtration Rate 70 ML/MIN Bedside Glucose 113 MG/DL Troponin I LESS THAN 0.02 NG/ML Urine Color LIGHT-YELLOW Urine Turbidity CLEAR Urine pH 7.0 Urine Specific [place] 1.044 Urine Protein NEG mg/dL Urine Glucose (UA) NEG mg/dL Urine Ketones 10 mg/dL Urine Occult Blood SMALL Urine Nitrite NEG Urine Bilirubin NEG Urine Urobilinogen LESS THAN 2.0 MG/DL Urine Leukocyte Esterase MOD Urine RBC 3 /hpf Urine WBC 2 /hpf Urine Squamous Epithelial Cells <1 /hpf Urine Transitional Epithelial Cells <1 /hpf Microscopic Urinalysis Comment CATH-CULT NOT IND Hemoglobin A1c 6.0 % Triglycerides Level 47 MG/DL Cholesterol Level 143 MG/DL LDL Cholesterol 57 MG/DL HDL Cholesterol 76.8 MG/DL Cholesterol/HDL Ratio 1.86 RATIO Imaging Last Impressions Head CT 01/10/182153 Signed Impressions: Service Date/Time: December 21:57 - CONCLUSION: Normal examination for a patient of this age. No significant change has occurred. Gerald Kam MD Neck CTA 01/10/18 0000 Signed Impressions: Service Date/Time: December 22:03 - CONCLUSION: 1. No carotid stenosis. Minimal atherosclerotic disease within normal limits for age. Gerald Kam MD Head CTA 01/10/18 0000 Signed Impressions: Service Date/Time: December 22:03 - CONCLUSION: Normal examination for a patient of this age. Gerald Kam MD Objective Remarks GENERAL: This is a well-nourished, well-developed patient CARDIOVASCULAR: Regular rate and rhythm RESPIRATORY: Clear to auscultation. Breath sounds equal bilaterally. GASTROINTESTINAL: Abdomen soft, non-tender, nondistended. Normal active bowel sounds MUSCULOSKELETAL: Extremities without clubbing, cyanosis, or edema. NEURO: Alert & Oriented. left upper extremity 4/5, left lower extremity 4/5. speech is clear A/P Problem List: (1) CVA (cerebral vascular accident) ICD Codes: I63.9 - Cerebral infarction, unspecified Status: Acute Plan: CT of the head reviewed and revealed normal exam for patient of this age no significant changes occurred. CTA of the neck reviewed and reveals no carotid stenosis minimal atherosclerotic disease within normal limits for age CT of the head reviewed and reveals normal examination for patient of this age MRI revealed no acute intracranial abnormality is identified. There are no findings to indicate recent ischemia. Echocardiogram pending NPO initially, speech therapy recommending regular diet with thin liquids Head of bed flat initially. Now that it has been 48 hours after symptoms had started patient may be OOB with assistance Normal saline at 75 cc/h DC'd now that pt is tolerating PO PT/OT and Speech requested Neurology has been consulted, appreciate input. feels that there may have been a small lacunar stroke not evident on MRI. DC aspirin and started Aggrenox as patient has an allergy to Plavix. Also recommended MRI C spine MRI of C spine (01/11): At C5-6 there is a moderate-sized broad-based disc protrusion resulting in moderate canal stenosis and cord compression and flattening. At C3-4 there is previous fusion. C6-C7 there is some mild disc protrusion with mild stenosis and mild impression on the cervical cord. No acute fracture. No cord signal abnormality. Consult placed to Neurosurgery to evaluate, Dr. Flores discussed the case and imaging with Dr. Noland who recommends no surgical indication at this time. Follow up with neurosurgery in 3 weeks Plan to DC to SNF tomorrow (2) Hypertension ICD Codes: I10 - Essential (primary) hypertension Status: Chronic Plan: allow permissive HTN patient BP has been stable without home amlodipine 5 mg PO daily, will continue to hold and monitor BP (3) CAD (coronary artery disease) ICD Codes: I25.10 - Atherosclerotic heart disease of [place] coronary artery without angina pectoris Plan: Continue patient on aspirin. Unable to start Plavix patient is allergic and has had tongue swelling with Plavix in the past Per neurology aspirin DC'd and patient started on Aggrenox Assessment and Plan Patient examined. Assessment and plan formulated with Cookie Cali PA-C. I agree with the above. Cookie Cali Jan 12, 2018 12:55 Torres Flores DO Jan 14, 2018 01:26
--- NOTE | 2018-01-12 17:52 | MB ---
cc: HASMUKH WILSON MD DATE OF CONSULTATION: 01/12/2018. REASON FOR CONSULTATION / CHIEF COMPLAINT: Weakness. HISTORY OF PRESENT ILLNESS: This is a 62-year-old black female who presented to the emergency room complaining of numbness on the left side and weakness. She reports that this started approximately two o'clock in the afternoon. She presented at 9:30 in the evening. The patient reported that she had progressive weakness in her left arm and left leg, and because of this, presented to the emergency room. She gives a history of having three strokes in the past, all affecting the left side. The patient underwent evaluation and was admitted for further care. PAST MEDICAL HISTORY: Her past medical history is remarkable for: 1. History of previous stroke in the past. 2. Hypertension. 3. Hyperlipidemia. 4. Vitamin D deficiency. 5. Osteoarthritis. 6. She denies any heart disease, lung disease or kidney disease. PAST SURGICAL HISTORY: Her past surgical history is remarkable for: 1. Cervical fusion. 2. A hysterectomy. ALLERGIES: 1. PLAVIX. 2. AMOXICILLIN. MEDICATIONS: Her medications include: 1. Amlodipine. 2. Aspirin. 3. Atorvastatin. FAMILY HISTORY: Her mother had a heart attack and hypertension and her father has had a previous stroke, a heart attack and hypertension. 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 She does not use alcohol. She does not smoke. REVIEW OF SYSTEMS: Her review of systems is unremarkable except for pertaining to the above complaints. PHYSICAL EXAMINATION: VITAL SIGNS: Temperature of 98.7, blood pressure 145/70, respirations 17, pulse of 68 and 02 saturation of 97%. GENERAL: She is well-developed. She is sitting in a chair. She appears somewhat depressed. HEAD, EYES, EARS, NOSE, THROAT: Clear. NECK: Supple with carotid pulses bilaterally. CHEST: Symmetric. HEART: Regular rhythm with normal heart sounds. LUNGS: Clear. ABDOMEN: Abdomen soft and nontender. EXTREMITIES: Clear. NEUROLOGICAL EXAMINATION: Neurologically the patient is alert and awake. She is somewhat slow to respond. She follows commands well. She is oriented x3. Speech is fluent but slow. Cranial nerves II through XII appear intact. Motor exam is 5+/5. On the left side she does not appear to give maximal effort and is about 3 to 4+/5. Sensory exam is intact to touch. Deep tendon reflexes are 1+ in the upper extremities and 1+ in the lower extremities. She has a silent Babinski bilaterally and negative Yanet's. IMAGING STUDIES: Review of CT scan of the brain was unremarkable for stroke. She also had a CTA of the neck and a CTA of the head, which was unremarkable for stroke. MRI of the brain showed no acute intracranial abnormalities and no findings consistent with ischemia. MRI of the cervical spine shows evidence of degenerative changes, evidence of previous cervical fusion at the level of C3-4 and what appears to be a protrusion of the disc at the level of C5-6 producing some mild to moderate stenosis. IMPRESSION: Left-sided weakness, unclear if this represents a stroke. It is not clear if the findings on the cervical MRI are producing the patient's problems at the present time. I have discussed this with Dr. Flores. I would recommend at the present time the patient continue on observation. She will be started on physical therapy and occupational therapy. This can continue as an outpatient. She should be re-evaluated by neurosurgery in approximately two weeks to determine if any further procedures need to be entertained at the cervical level. MD LUNA Izaguirre/GIDEON /3:15 PM /5:36 PM JIM
[2018-01-13] VITALS (8 sets, daily range): BP systolic 123–137; BP diastolic 66–83; PULSE 66–79; RESP 20; TEMP 97.9–98.4; O2SAT 96–99
[2018-01-13] MEDS: ACETAMINOPHEN 500 MG CPLT PO PRN (01:25)
[2018-01-13] MEDS: INSULIN ASPART SUPPLEMENTAL SCALE SQ SCH ×3 (08:00→16:25)
[2018-01-13] MEDS: SODIUM CHLORIDE 0.9% FLUSH 10 ML FLUSH IV FLUSH SCH (09:00)
[2018-01-13] MEDS: ATORVASTATIN 40 MG TAB PO SCH (09:56)
[2018-01-13] MEDS: DIPYRIDAMOLE/ASPIRIN 200 MG/25 MG CAP PO SCH (09:56)
--- NOTE | 2018-01-13 12:03 | HHI.FF ---
Face to Face Verification Diagnosis: (1) CVA (cerebral vascular accident) (2) Hypertension Physical Therapy Order: Evaluate and Treat, Improve ambulation, Strength and gait training Occupational Therapy Order: Evaluate and Treat Speech Therapy Order: To Improve: Speech and communication skills Home Health Nursing Order: Medical education Signs/symptoms of disease process Medication education-adverse effect Nursing assessment with vital signs Energy Sales Consultant Order: To Evaluate: Living conditions/environment, Support services Order: To Provide: Long range planning, Community services I have seen patient Ahsan Gunderson on 01/13/18. My clinical findings support the need for the requested home health care services because: Ltd mobility - disease progression High risk of falls I certify that my clinical findings support that this patient is homebound because: Unsteady gait/balance Cookie Cali Jan 13, 2018 12:03
[2018-01-13] MEDS ORDERED: ATOR40TA16 PO (12:12)
--- NOTE | 2018-01-13 12:13 | HHI.DS ---
Discharge Summary Admission Date Jan 11, 2018 at 00:58 Discharge Date: Jan 13, 2018 Admitting Diagnosis CVA/TIA (1) Hypertension Diagnosis: Principal ICD Codes: I10 - Essential (primary) hypertension Status: Chronic (2) CAD (coronary artery disease) Diagnosis: Secondary ICD Codes: I25.10 - Atherosclerotic heart disease of [place] coronary artery without angina pectoris (3) TIA (transient ischemic attack) Diagnosis: Principal ICD Codes: G45.9 - Transient cerebral ischemic attack, unspecified Consultants Dr. Noland, Neurosurgery Dr. Watters, Neurology Procedures none Brief History This is a 63-year-old AA female with a past medical history includes hypertension, prior CVA 2 and prior [place]. Patient symptoms started around 2:00 PM yesterday (01/10). Patient began having weakness in her left hand and felt that her left leg was dragging. 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 Then around 2:30PM she was seen by her family who noticed that she mild dysphasia. Upon arrival to the ER patient was holding her neck slightly off to the left and she had a 3 out of 5 strength in her left hand and a 4 out of 5 left leg. She was able to follow commands eyes opening and closing she is able to cross midline she was outside of the TPA. Dr. Mathis to activate stroke alert CT scan was done which was negative CTA of head and neck is done that is also negative she was admitted given her fluids, Plavix and aspirin Plan for patient to have an MRI of the brain in this morning. CBC/BMP: 01/10/18215101/10/182151 Significant Findings Laboratory Tests Test 01/10/18 21:52 01/10/18 23:45 01/11/18 20:17 01/12/18 07:58 White Blood Count 13.8 TH/MM3 (4.0-11.0) Hematocrit 34.3 % (35.0-46.0) Mean Corpuscular Volume 74.2 FL (80.0-100.0) Mean Corpuscular Hemoglobin 25.5 PG (27.0-34.0) Neutrophils (%) (Auto) 87.8 % (16.0-70.0) Lymphocytes (%) (Auto) 7.4 % (9.0-44.0) Neutrophils # (Auto) 12.1 TH/MM3 (1.8-7.7) Fibrinogen 442 mg/dL (227-377) Alkaline Phosphatase 118 U/L (45-117) Estimat Glomerular Filtration Rate 70 ML/MIN (>89) Bedside Glucose 113 MG/DL (68-110) Troponin I LESS THAN 0.02 NG/ML Urine Specific [place] 1.044 (1.002-1.035) Urine Ketones 10 mg/dL (NEG) Urine Occult Blood SMALL (NEG) Urine Leukocyte Esterase MOD (NEG) HDL Cholesterol 76.8 MG/DL (40.0-60.0) Imaging Last Impressions Cervical Spine MRI 01/11/18 Signed Impressions: Service Date/Time: Thursday, January 11, 2018 20:33 - CONCLUSION: 1. At C5-6 there is a moderate-sized broad-based disc protrusion resulting in moderate canal stenosis and cord compression and flattening. 2. At C3-4 there is previous fusion. 3. At C6-7 there is a mild disc protrusion with mild stenosis and mild impression on the cervical cord. 4. No acute fracture. No cord signal abnormality. Gerald Kam MD Brain MRI 01/11/18 Signed Impressions: Service Date/Time: Thursday, January 11, 2018 11:37 - CONCLUSION: No acute intracranial abnormality is identified. There are no findings to indicate recent ischemia. Oscar Dave MD Head CT 01/10/182153 Signed Impressions: Service Date/Time: December 21:57 - CONCLUSION: Normal examination for a patient of this age. No significant change has occurred. Gerald Kam MD Neck CTA 01/10/18 Signed Impressions: Service Date/Time: December 22:03 - CONCLUSION: 1. No carotid stenosis. Minimal atherosclerotic disease within normal limits for age. Gerald Kam MD Head CTA 01/10/18 Signed Impressions: Service Date/Time: December 22:03 - CONCLUSION: Normal examination for a patient of this age. Gerald Kam MD PE at Discharge GENERAL: This is a well-nourished, well-developed patient CARDIOVASCULAR: Regular rate and rhythm RESPIRATORY: Clear to auscultation. Breath sounds equal bilaterally. GASTROINTESTINAL: Abdomen soft, non-tender, nondistended. Normal active bowel sounds MUSCULOSKELETAL: Extremities without clubbing, cyanosis, or edema. NEURO: Alert & Oriented. left upper extremity 4/5, left lower extremity 4/5. speech is clear Hospital Course Probable TIA CT of the head reviewed and revealed normal exam for patient of this age no significant changes occurred. CTA of the neck reviewed and reveals no carotid stenosis minimal atherosclerotic disease within normal limits for age CT of the head reviewed and reveals normal examination for patient of this age MRI revealed no acute intracranial abnormality is identified. There are no findings to indicate recent ischemia. Echocardiogram completed results not yet available. Patient to follow up with PCP NPO initially, speech therapy recommending regular diet with thin liquids Head of bed flat initially. Now that it has been 48 hours after symptoms had started patient may be OOB with assistance Normal saline at 75 cc/h DC'd now that pt is tolerating PO PT/OT and Speech requested Neurology has been consulted, appreciate input. feels that there may have been a small lacunar stroke not evident on MRI. DC aspirin and started Aggrenox as patient has an allergy to Plavix. Also recommended MRI C spine MRI of C spine (01/11): At C5-6 there is a moderate-sized broad-based disc protrusion resulting in moderate canal stenosis and cord compression and flattening. At C3-4 there is previous fusion. C6-C7 there is some mild disc protrusion with mild stenosis and mild impression on the cervical cord. No acute fracture. No cord signal abnormality. Consult placed to Neurosurgery to evaluate, Dr. Flores discussed the case and imaging with Dr. Noland who recommends no surgical indication at this time. Follow up with neurosurgery in 2 weeks Patient continues to improve. Patient feels that she is back to baseline function will DC home. Hypertension allowed permissive HTN initially patient BP has been stable without home amlodipine 5 mg PO daily, will continue to hold and monitor BP CAD (coronary artery disease) Continue patient on aspirin. Unable to start Plavix patient is allergic and has had tongue swelling with Plavix in the past Per neurology aspirin DC'd and patient started on Aggrenox Pt Condition on Discharge: Stable Discharge Disposition: Disch w/ Home Health Serv Discharge Instructions DIET: Follow Instructions for: Heart Healthy Diet Speech Therapy-Diet Recommends: Regular Activities you can perform: Regular-No Restrictions Follow up Referrals: Neurology - 2 Weeks with Kolby Watters MD PhD Neurosurgery - 2 Weeks with Ruben Eduardo MD PCP Follow-up - [address] Mosher New Medications: Dipyridamole-Aspirin (Aggrenox) 200-25 Mg Cap 1 CAP PO BID for Blood Clot Prevention, #42 CAP 0 Refills Continued Medications: Amlodipine (Norvasc) 5 Mg Tab 5 MG PO DAILY for Blood Pressure Management, #30 TAB 0 Refills Atorvastatin (Lipitor) 40 Mg Tab 40 MG PO HS for Cholesterol Management, #30 TAB 0 Refills Discontinued Medications: Aspirin (Aspirin) 81 Mg Chew 81 MG CHEW DAILY, TAB 0 Refills Additional Information Patient examined. Assessment and plan formulated with Cookie Cali PA-C. I agree with the above. Cookie Cali Jan 13, 2018 12:13 Torres Flores DO Jan 14, 2018 01:27
--- NOTE | 2018-01-13 13:03 | HHI.NSPN ---
History Chief Complaint: I am better Interval History Patient reports overnight improvement. She reports she is able to move all extremities well and is able to ambulate well. She wants to go home Exam Results Vital Signs Date Time Temp Pulse Resp B/P (MAP) Pulse Ox O2 Delivery O2 Flow Rate FiO2 01/13/18 12:02 98.4 79 20 123/71 (88) 96 01/11/18 02:00 Room Air 01/10/18 21:52 21 Physical Examination Much more alert and awake. Speech is fluent. Follows commands well. Moves all extremities well. Was able to rise from a chair without any assistance. Ambulated in the room without any imbalance or assistance Medical Decision Making Impression and Plan Patient is much improved today No neurosurgical intervention needed. Discussed with Abdirizak Snowden MD Jan 13, 2018 13:03
[2018-01-13] MEDS ORDERED: AGGR20025 PO (13:51)
[2018-01-13] MEDS ORDERED: LIPI40TA PO (13:52)
== END 2018-01-13 17:04 | disposition home or self-care (01) | DRG 69 ==
LOC: NEPC 21:31 → NEDA 01-11 00:58 → N05A 01-11 03:45
PROVIDERS: ADMIT Hospitalist; ATTEND Hospitalist
DX: G45.9 Transient cerebral ischemic attack, unspecified (principal); G81.94 Hemiplegia, unspecified affecting left nondominant side; I10 Essential (primary) hypertension; M48.02 Spinal stenosis, cervical region; E78.5 Hyperlipidemia, unspecified; E55.9 Vitamin D deficiency, unspecified; M19.90 Unspecified osteoarthritis, unspecified site; E66.9 Obesity, unspecified; I70.0 Atherosclerosis of aorta; I25.10 Atherosclerotic heart disease of native coronary artery without angina pectoris; Z98.1 Arthrodesis status; Z86.73 Personal history of transient ischemic attack (TIA), and cerebral infarction without residual deficits; Z68.32 Body mass index [BMI] 32.0-32.9, adult; I25.2 Old myocardial infarction; Z88.8 Allergy status to other drugs, medicaments and biological substances; R29.709 NIHSS score 9
CPT/HCPCS: 70450; 70496; 70498; 70551; 72141; 80048; 80053; 80061; 81001; 82948; 83036; 84484; 85025; 85384; 93005; 99285; J2060; J7030; Q9967

== ENCOUNTER 2018-09-15 02:19 | Observation (INO) ==
[2018-09-15] MEDS ORDERED: Atropine Inj 1 MG/10 ML Syringe ONE (02:24)
[2018-09-15] MEDS ORDERED: Sod Chloride 0.9% Inj 1,000 ML IV.SIG ONE ×2 (02:32)
[2018-09-15 02:40] LABS: Baso # (Auto) 0.1 th/mm3 (0.0-0.2); Baso % (Auto) 0.8 % (0.0-2.0); Eos # (Auto) 0.7 th/mm3 (0.0-0.4); Eos % (Auto) 4.7 % (0.0-4.0); Hematocrit 38.7 % (35.0-46.0); Hemoglobin 12.1 gm/dL (11.6-15.3); Lymph # (Auto) 5.5 th/mm3 (1.0-4.8); Lymph % (Auto) 36.5 % (9.0-44.0); Mean Corpuscular HGB Conc 31.2 % (32.0-36.0); Mean Corpuscular Hemoglobin 24.4 pg (27.0-34.0); Mean Corpuscular Volume 78.1 fL (80.0-100.0); Mean Platelet Volume 7.9 fL (7.0-11.0); Mono # (Auto) 0.9 th/mm3 (0.0-0.9); Mono % (Auto) 5.8 % (0.0-8.0); Neut % (Auto) 52.2 % (16.0-70.0); Platelet Count 296 th/mm3 (150-450); Red Blood Count 4.96 mil/mm3 (4.00-5.30); White Blood Count 15.2 th/mm3 (4.0-11.0)
[2018-09-15 02:48] LABS: Chloride 105 meq/L (98-107); Sodium 139 meq/L (136-145)
[2018-09-15 02:51] LABS: Calcium 8.8 mg/dL (8.5-10.1)
[2018-09-15 02:52] LABS: Albumin 3.5 g/dL (3.4-5.0); Anion Gap 7 meq/L (5-15); Blood Urea Nitrogen 12 mg/dL (7-18); Carbon Dioxide 26.8 meq/L (21.0-32.0); Glucose,Random 107 mg/dL (74-106)
[2018-09-15 02:55] LABS: Alanine Aminotransferase 19 U/L (10-53); Aspartate Aminotransferase 18 U/L (15-37); Glomerular Filtration Rate 61 mL/min (>89)
[2018-09-15 02:57] LABS: Total Protein 7.6 g/dL (6.4-8.2)
[2018-09-15 02:58] LABS: Alkaline Phosphatase 111 U/L (45-117); Eosinophils 7 % (0-4); Lymphocytes 35 % (9-44); Monocytes 6 % (0-8)
--- NOTE | 2018-09-15 02:58 | CT ---
EXAM DATE: 09/15/2018 2:33 AM EDT AGE/SEX: 62 years / Female INDICATIONS: Syncopal episode, possible seizure. CLINICAL DATA: This is the patient's initial encounter. Patient reports that signs and symptoms have been present for 1 day and indicates a pain score of 0/10. MEDICAL/SURGICAL HISTORY: Hypertension. Non-responsive. RADIATION DOSE: 58.35 CTDI (mGy) COMPARISON: [facility] [place], CTA BRAIN W 3D RECON, 01/10/2018. . TECHNIQUE: CT of the head without contrast. Using automated exposure control and adjustment of the mA and/or kV according to patient size, radiation dose was kept as low as reasonably achievable to ob tain optimal diagnostic quality images. DICOM format image data is available electronically for revi ew and comparison. FINDINGS: Cerebrum: The ventricles are normal for age. No evidence of midline shift, mass lesion, hemorrhage or acute infarction. No extraaxial fluid collections are seen. Posterior Fossa: The cerebellum and brainstem are intact. The 4th ventricle is midline. The cerebe llopontine angle is unremarkable. Extracranial: The visualized portion of the orbits is intact. Skull: The calvaria is intact. No evidence of skull fracture. CONCLUSION: 1. No acute intracranial abnormality. . Electronically signed by: Jeff Pitt MD 09/15/2018 2:57 AM EDT
[2018-09-15 02:59] LABS: Platelet Estimate Normal (Normal); Platelet Morphology Normal (Normal)
[2018-09-15 03:20] LABS: Bilirubin,Urine Negative (Negative); Clarity,Urine Clear (Clear); Color,Urine Yellow (Yellw/Straw); Glucose,Urine (UA) Negative (Negative); Leukocyte Esterase,Urine Negative (Negative); Nitrite,Urine Negative (Negative); Specific Gravity,Urine 1.015 (1.002-1.035); Urobilinogen,Urine 0.2 mg/dL (Less than 2)
[2018-09-15 03:39] LABS: Squamous Epithelial Cell,Urine 0-5 /hpf (0-5); WBC,Urine 0-5 /hpf (0-5)
--- NOTE | 2018-09-15 06:47 | ED ---
HPI General Chief complaint: Syncope Stated complaint: Passed out Time Seen by Provider: 09/15/18 02:32 Source: patient Mode of arrival: ambulatory Limitations: no limitations History of Present Illness HPI narrative: This is a 62-year-old female who has a history of 2 strokes and myocardial infarction in the past who was accompanying her daughter in the emergency department who is here with otitis media when she had an episode where she passed out. I witnessed the episode. She had some seizure-like movements and became unresponsive. The daughter reports this is never happened before. She says she has been ill with an upper respiratory infection and she has been taking a lot of over-the- counter cold medicine. She has never had a seizure. Related Data Home Medications Medication Instructions Recorded Confirmed amlodipine 10 mg PO DAILY 09/15/18 09/15/18 aspirin [Aspir-81] 81 mg PO DAILY 09/15/18 09/15/18 cplemuoscvrhc-CJ-mparnpcxhgq 15 ml PO Q4H PRN 09/15/18 09/15/18 [Robitussin Cough and Cold CF] Allergies Allergy/AdvReac Type Severity Reaction Status Date / Time amoxicillin Allergy Severe HIVES Verified 09/15/18 03:22 clopidogrel Allergy Severe TONGUE Verified 09/15/18 03:22 SWELLING APPLE JUICE Allergy Unknown Hives Uncoded 12/22/07 10:05 Review of Systems ROS Unobtainable ROS Unobtainable: unobtainable due to mental condition [facility] Medical History Medical History HTN (hypertension) (Acute) History of RI (myocardial infarction) (Acute) Stroke (Acute) Social History Social History Substance History: No History of Abuse Second Hand Smoke Exposure: No Smoking Status: Never smoker How Often Do You Have a Drink Containing Alcohol: Never Recent Travel in [place] within the Last 8 Weeks: No Recent Out of Country Travel within the Last 8 Weeks: No Immunization History Tetanus Immunization: Unsure Exam Narrative Exam Narrative: GENERAL:Pale, lethargic, cool and clammy SKIN: Focused skin assessment warm and dry. HEAD: Atraumatic. Normocephalic. EYES: Pupils equal and round. No injection or drainage. ENT: Moist mucous membranes NECK: Trachea midline. CARDIOVASCULAR: Bradycardic No murmur appreciated. RESPIRATORY: Clear to auscultation. Breath sounds equal bilaterally. GASTROINTESTINAL: Abdomen soft, non-tender, nondistended. MUSCULOSKELETAL: No obvious deformities. NEUROLOGICAL: Awake and alert. No obvious cranial nerve deficits. No dysarthria or aphasia. No focal weakness. Course Initial Documented Vital Signs Temperature 97.9 F 09/15/18 02:20 Pulse Rate 49 L 09/15/18 02:20 Respiratory Rate 16 09/15/18 02:20 Blood Pressure 90/72 L 09/15/18 02:20 Pulse Oximetry 94 L 09/15/18 02:20 Last Documented Vital Signs Temperature 97.9 F 09/15/18 02:20 Pulse Rate 60 09/15/18 05:38 Respiratory Rate 16 09/15/18 05:38 Blood Pressure 129/73 09/15/18 05:38 Pulse Oximetry 97 09/15/18 05:38 Medical Decision Making MDM Narrative Medical decision making narrative: This is a 62-year-old female who had an episode of syncope versus seizure while she was in the emergency department with her daughter. I witnessed the episode. She had lateral repetitive eye movements, slumped over and had what appeared to be a postictal phase where she was snoring and somnolent. She was transferred to in ED bed and placed on a monitor. She was bradycardic and hypotensive. Blood sugar was normal. She became increasingly alert with 2 L of IV fluid and had a nonfocal neurologic exam. Labs were obtained and a CT of the head was obtained all of which were reassuring. Given the severity of the patient's episode I think it is reasonable to admit her for IV hydration and observation. Medical Screen Exam Complete: Yes Emergency Medical Condition: Yes Differential Diagnosis Differential Diagnosis: Syncope, seizure, electrolyte abnormality, arrhythmia, stroke Medical Records Medical records reviewed: Yes I reviewed the patient's medical records. Lab Data Lab results reviewed: Yes I reviewed the patient's lab results. Result diagrams: 09/15/18 02:30 09/15/18 02:30 Lab Results 09/15/18 09/15/18 09/15/18 Range/Units 02:22 02:30 02:30 CBC w Diff Slide review pending WBC 15.2 H (4.0-11.0) th/mm3 RBC 4.96 (4.00-5.30) mil/mm3 Hgb 12.1 (11.6-15.3) gm/dL Hct 38.7 (35.0-46.0) % MCV 78.1 L (80.0-100.0) fL MCH 24.4 L (27.0-34.0) pg MCHC 31.2 L (32.0-36.0) % RDW 14.0 (11.6-17.2) % Plt Count 296 (150-450) th/mm3 MPV 7.9 (7.0-11.0) fL Neut % (Auto) 52.2 (16.0-70.0) % Lymph % (Auto) 36.5 (9.0-44.0) % [place] % (Auto) 5.8 (0.0-8.0) % Eos % (Auto) 4.7 H (0.0-4.0) % Baso % (Auto) 0.8 (0.0-2.0) % Neut # (Auto) 8.0 H (1.8-7.7) th/mm3 Lymph # (Auto) 5.5 H (1.0-4.8) th/mm3 [place] # (Auto) 0.9 (0.0-0.9) th/mm3 Eos # (Auto) 0.7 H (0.0-0.4) th/mm3 Baso # (Auto) 0.1 (0.0-0.2) th/mm3 WBC Differential Manual diff final Seg Neuts % (Manual) 52 (16-70) % Lymphocytes % (Manual) 35 (9-44) % Monocytes % (Manual) 6 (0-8) % Eosinophils % (Manual) 7 H (0-4) % Abs Neuts (Manual) 7.9 H (1.8-7.7) th/mm3 Differential Comment . Platelet Estimate Normal (Normal) Platelet Morphology Normal (Normal) Sodium 139 (136-145) meq/L Potassium 4.0 (3.5-5.1) meq/L Chloride 105 (98-107) meq/L Carbon Dioxide 26.8 (21.0-32.0) meq/L Anion Gap 7 (5-15) meq/L BUN 12 (7-18) mg/dL Creatinine 1.10 H (0.50-1.00) mg/dL Estimated GFR 61 L (>89) mL/min POC Glucose 136 H (68-110) mg/dl Random Glucose 107 H (74-106) mg/dL Calcium 8.8 (8.5-10.1) mg/dL Total Bilirubin 0.2 (0.2-1.0) mg/dL AST 18 (15-37) U/L ALT 19 (10-53) U/L Alkaline Phosphatase 111 (45-117) U/L Troponin I Less than 0.02 L (0.02-0.05) ng/mL Total Protein 7.6 (6.4-8.2) g/dL Albumin 3.5 (3.4-5.0) g/dL Urine Color (Yellw/Straw) Urine Clarity (Clear) Urine pH (5.0-8.5) Ur Specific [place] (1.002-1.035) Urine Protein (Neg-Trace) mg/dL Urine Glucose (UA) (Negative) mg/dL Urine Ketones (Negative) mg/dL Urine Occult Blood (Negative) Urine Nitrate (Negative) Urine Bilirubin (Negative) Urine Urobilinogen (Less than 2) mg/dL Ur Leukocyte Esterase (Negative) Urine RBC (0-3) /hpf Urine WBC (0-5) /hpf Ur Squamous Epith Cells (0-5) /hpf Ur Microscopic Review 09/15/18 Range/Units 03:11 CBC w Diff WBC (4.0-11.0) th/mm3 RBC (4.00-5.30) mil/mm3 Hgb (11.6-15.3) gm/dL Hct (35.0-46.0) % MCV (80.0-100.0) fL MCH (27.0-34.0) pg MCHC (32.0-36.0) % RDW (11.6-17.2) % Plt Count (150-450) th/mm3 MPV (7.0-11.0) fL Neut % (Auto) (16.0-70.0) % Lymph % (Auto) (9.0-44.0) % [place] % (Auto) (0.0-8.0) % Eos % (Auto) (0.0-4.0) % Baso % (Auto) (0.0-2.0) % Neut # (Auto) (1.8-7.7) th/mm3 Lymph # (Auto) (1.0-4.8) th/mm3 [place] # (Auto) (0.0-0.9) th/mm3 Eos # (Auto) (0.0-0.4) th/mm3 Baso # (Auto) (0.0-0.2) th/mm3 WBC Differential Seg Neuts % (Manual) (16-70) % Lymphocytes % (Manual) (9-44) % Monocytes % (Manual) (0-8) % Eosinophils % (Manual) (0-4) % Abs Neuts (Manual) (1.8-7.7) th/mm3 Differential Comment Platelet Estimate (Normal) Platelet Morphology (Normal) Sodium (136-145) meq/L Potassium (3.5-5.1) meq/L Chloride (98-107) meq/L Carbon Dioxide (21.0-32.0) meq/L Anion Gap (5-15) meq/L BUN (7-18) mg/dL Creatinine (0.50-1.00) mg/dL Estimated GFR (>89) mL/min POC Glucose (68-110) mg/dl Random Glucose (74-106) mg/dL Calcium (8.5-10.1) mg/dL Total Bilirubin (0.2-1.0) mg/dL AST (15-37) U/L ALT (10-53) U/L Alkaline Phosphatase (45-117) U/L Troponin I (0.02-0.05) ng/mL Total Protein (6.4-8.2) g/dL Albumin (3.4-5.0) g/dL Urine Color Yellow (Yellw/Straw) Urine Clarity Clear (Clear) Urine pH 7.0 (5.0-8.5) Ur Specific [place] 1.015 (1.002-1.035) Urine Protein Negative (Neg-Trace) mg/dL Urine Glucose (UA) Negative (Negative) mg/dL Urine Ketones Negative (Negative) mg/dL Urine Occult Blood Trace (Negative) Urine Nitrate Negative (Negative) Urine Bilirubin Negative (Negative) Urine Urobilinogen 0.2 (Less than 2) mg/dL Ur Leukocyte Esterase Negative (Negative) Urine RBC 4-15 H (0-3) /hpf Urine WBC 0-5 (0-5) /hpf Ur Squamous Epith Cells 0-5 (0-5) /hpf Ur Microscopic Review Microscopic reviewed Leukocytosis likely in the setting of upper respiratory infection Imaging Data Radiologist's impression: Head CT 09/15/18 02:32 CONCLUSION: 1. No acute intracranial abnormality. . Discharge Plan Discharge Disposition Patient Disposition: 30 Still Patient Discharge Condition Condition: Stable Discharge Details Diagnosis: Syncope Physicians Team ED Provider: Kelly Byrne Primary Care Provider: UNKNOWN, Attending Provider: Eugenia El Discharge Interventions Interventions: Vital Signs Last Done: 09/15/18 06:32 Status ED Status: Admitted Patient
[2018-09-15] MEDS ORDERED: Bisacodyl 10 MG Supp RECTAL PRN (07:25)
[2018-09-15] MEDS ORDERED: Acetaminophen 325 MG Tablet PO PRN (07:25)
[2018-09-15] MEDS ORDERED: Temazepam 15 MG Capsule PO PRN (07:25)
--- NOTE | 2018-09-15 08:10 | XR ---
EXAM DATE: 09/15/2018 12:00 AM EDT AGE/SEX: 62 years / Female INDICATIONS: . Syncopal episode, possible seizure, cough, short of breath CLINICAL DATA: This is the patient's subsequent encounter. Patient reports that signs and symptoms h ave been present for 2 days and indicates a pain score of 0/10. MEDICAL/SURGICAL HISTORY: Stroke. Myocardial infarction. None. [place] [facility] [place] . FINDINGS: AP and lateral views of the chest demonstrate the lungs to be symmetrically aerated without evidence of mass, infiltrate or effusion. The heart size is mildly prominent with no pulmonary vascular distr ibution. Osseous structures are intact. CONCLUSION: The heart size is mildly prominent with no pulmonary edema. Electronically signed by: Keith Kennedy MD 09/15/2018 8:08 AM EDT
[2018-09-15] MEDS: Sod Chloride 0.9% Inj 1,000 ML IV.CONT SCH ×2 (08:59→18:37)
--- NOTE | 2018-09-15 11:47 | MR ---
EXAM DATE: 09/15/2018 10:37 AM EDT AGE/SEX: 62 years / Female INDICATIONS: Seizures. CLINICAL DATA: This is the patient's initial encounter. Patient reports that signs and symptoms have been present for 2 days and indicates a pain score of 0/10. MEDICAL/SURGICAL HISTORY: Hypertension. Hysterectomy. Fusion, cervical. COMPARISON: [facility] – [place] CTA BRAIN W 3D RECON, 01/10/2018. . TECHNIQUE: 3D [id number] MRA was performed. Source images, multiplanar STS MIP, and 3D volum e MIP reconstructions were reviewed. FINDINGS: The thecal source images are degraded by motion artifact limiting visualization. There is excellent visualization of the major intracranial arteries out to the second-order branch ve ssels. There is no evidence for aneurysm, vessel truncation or stenosis, and no evidence for vascula r malformation. CONCLUSION: 1. Negative exam. Electronically signed by: Keith Kennedy MD 09/15/2018 11:45 AM EDT
--- NOTE | 2018-09-15 11:53 | MR ---
EXAM DATE: 09/15/2018 10:37 AM EDT AGE/SEX: 62 years / Female INDICATIONS: Seizures. CLINICAL DATA: This is the patient's initial encounter. Patient reports that signs and symptoms have been present for 1 day and indicates a pain score of 0/10. MEDICAL/SURGICAL HISTORY: Hypertension. Fusion, cervical. Hysterectomy. COMPARISON: [facility] – [place], MRI BRAIN W/O CONTRAST, 01/11/2018. . TECHNIQUE: Multiplanar, multisequence examination of the brain was performed without contrast. FINDINGS: Cerebrum: The ventricles are normal for age. No evidence of midline shift, mass lesion, hemorrhage or acute infarction. No extraaxial fluid collections are seen. The pituitary gland and suprasellar cistern are normal in configuration. White Matter: On the FLAIR weighted images there are multiple small punctate areas of scattered incr eased signal again noted. Posterior Fossa: The cerebellum and brainstem are intact. The 4th ventricle is midline. The cerebel lopontine angle is unremarkable. The cerebellar tonsils are normal in position. Diffusion Imaging: No focal areas of restricted diffusion are seen. No evidence of acute infarction . Extracranial: The visualized portions of the orbits are unremarkable. Mucosal thickening is now pres ent in the left maxillary sinus. CONCLUSION: 1. No acute hemorrhage, mass or infarction. 2. Mucosal thickening is now present in the left maxillary sinus. Electronically signed by: Keith Kennedy MD 09/15/2018 11:52 AM EDT
--- NOTE | 2018-09-15 11:54 | P.CONNEU ---
History of Present Illness Service: Neurology Primary Care Provider: UNKNOWN Chief Complaint: Seizure, vasovagal syncope History of Present Illness: 62-year-old female admitted through the ER. She is bringing her daughter and for ear infection. She is feeling lightheaded sleepy apparently she went down possibly passed out was having some convulsive activity noted by the ER physician she is admitted for further evaluation. Patient states she has no recollection shaking no previous history of seizures. Has been taking a lot of antihistamines for suspected URI symptoms. States she had a stroke in year 1999 no residuals. Blood pressure 90/72 Her major complaint is 1 of dyspnea on exertion. Apparently has had a stress test in the past which was negative Denies any current headache neck pain vision loss focal weakness dizziness vertigo or other. 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 Denies any tobacco use Review of Systems All other systems reviewed negative except as stated in HPI [facility] - History History Provided By: Patient - Medical History Medical History: Medical History (Last Reviewed 09/15/18 @ 13:42 by Eugenia El MD) H/O: hysterectomy Hyperlipidemia Prediabetes Vitamin D deficiency HTN (hypertension) Stroke - Surgical History Surgical History: Surgical History (Last Reviewed 09/15/18 @ 13:42 by Eugenia El MD) H/O cervical discectomy - Tobacco History Second Hand Smoke Exposure: No Tobacco Use In Past 30 Days: No Smoking Status: Never smoker - Alcohol History How Often Do You Have a Drink Containing Alcohol: Never - Substance Use History Substance History: No History of Abuse - Travel History Recent Travel in the [place] Within the Last 8 Weeks: No Recent Travel Out of the Country Within the Last 8 Weeks: No - Immunization History Tetanus Immunization: Unsure Medications and Allergies Active Medications: Active Medications Acetaminophen (Tylenol) 650 mg PO Q4H PRN PRN Reason: Temp > 100.4 Al Hydroxide/Mg Hydroxide (Milk Of Magnesia Liq) 30 ml PO Q12H PRN PRN Reason: Mild Constipation Aspirin (Ecotrin) 81 mg PO DAILY JEAN PAUL Last Admin: 09/15/18 09:16 Dose: 81 mg Bisacodyl (Dulcolax Supp) 10 mg RECTAL DAILY PRN PRN Reason: SEVERE CONSITIPATION Sodium Chloride (Ns Inj) 1,000 mls @ 100 mls/hr IV.CONT .Q10H JEAN PAUL Last Admin: 09/15/18 08:59 Dose: 100 mls/hr Lactulose (Lactulose Liq) 30 ml PO DAILY PRN PRN Reason: SEVERE CONSITIPATION Ondansetron HCl (Zofran Inj) 4 mg IV.PUSH Q6H PRN PRN Reason: NAUSEA OR VOMITING Sennosides (Senokot) 17.2 mg PO Q12H PRN PRN Reason: Moderate Constipation Temazepam (Restoril) 15 mg PO HS PRN PRN Reason: INSOMNIA Allergies Allergy/AdvReac Type Severity Reaction Status Date / Time amoxicillin Allergy Severe HIVES Verified 09/15/18 03:22 clopidogrel Allergy Severe TONGUE Verified 09/15/18 03:22 SWELLING APPLE JUICE Allergy Unknown Hives Uncoded 12/22/07 10:05 Home Medications Medication Instructions Recorded Confirmed Type amlodipine 10 mg PO DAILY 09/15/18 09/15/18 History aspirin [Aspir-81] 81 mg PO DAILY 09/15/18 09/15/18 History iwztikignehvl-DR-bkhbahulnbx 15 ml PO Q4H PRN 09/15/18 09/15/18 History [Robitussin Cough and Cold CF] Exam Vital signs: Vital Signs 09/15/18 02:20 09/15/18 03:26 09/15/18 03:30 Temperature 97.9 F Pulse Rate 49 L 65 60 Respiratory Rate 16 16 18 Blood Pressure 90/72 L 159/77 H 146/80 H Pulse Oximetry 94 L 09/15/18 04:30 09/15/18 05:38 09/15/18 06:32 Temperature 98.0 F Pulse Rate 60 60 70 Respiratory Rate 16 18 Blood Pressure 147/73 H 129/73 119/70 Pulse Oximetry 97 97 09/15/18 07:00 09/15/18 09:57 Temperature 97 F L Pulse Rate 62 72 Respiratory Rate 18 20 Blood Pressure 127/69 128/66 Pulse Oximetry 97 98 Intake & Output 09/14/18 09/15/18 09/15/18 18:59 06:59 18:59 Intake Total 1999 Output Total 1900 / 1900 Balance 100 / 100 Weight 89.7 kg Intake: IV 1999 NS Inj 1,000 ML @ Wide Open IV. 1999 SIG BOLUS ONE Rx#:[id number] Output: Urine 1900 / 1900 Other: Weight On Admission 89.7 kg Narrative: GENERAL: in NAD, SKIN: Warm and dry. HEAD: Atraumatic. Normocephalic. EYES: Pupils equal and round. No scleral icterus. ENT: No nasal bleeding or discharge. NECK: Trachea midline. No JVD. GASTROINTESTINAL: Abdomen soft, non-tender, nondistended. MUSCULOSKELETAL: Extremities without clubbing, cyanosis, or edema. No obvious deformities. NEUROLOGICAL: Awake and alert. No aphasia, oriented x3, fluent articulate, No facial asymmetry, OU 3-2mm, OU opacities noted, Eomi, VFF, No drift, Motor grossly within normal limits. Five out of 5 muscle strength in the arms and legs. Tone normal in all 4 limbs, no clonus plantar flexor gait not assessed secondary to fall risk PSYCHIATRIC: Appropriate mood and affect; insight and judgment normal. - Constitutional no acute distress - Routine HEENT Exam Head: Present: normocephalic Eye: Present: EOMI Results - Labs CBC & Chem 7: 09/15/18 02:30 09/15/18 02:30 Labs: Laboratory Results - last 24 hr 09/15/18 09/15/18 09/15/18 02:22 02:30 02:30 CBC w Diff Slide review pending WBC 15.2 H RBC 4.96 Hgb 12.1 Hct 38.7 MCV 78.1 L MCH 24.4 L MCHC 31.2 L RDW 14.0 Plt Count 296 MPV 7.9 Neut % (Auto) 52.2 Lymph % (Auto) 36.5 [place] % (Auto) 5.8 Eos % (Auto) 4.7 H Baso % (Auto) 0.8 Neut # (Auto) 8.0 H Lymph # (Auto) 5.5 H [place] # (Auto) 0.9 Eos # (Auto) 0.7 H Baso # (Auto) 0.1 WBC Differential Manual diff final Seg Neuts % (Manual) 52 Lymphocytes % (Manual) 35 Monocytes % (Manual) 6 Eosinophils % (Manual) 7 H Abs Neuts (Manual) 7.9 H Differential Comment . Platelet Estimate Normal Platelet Morphology Normal Sodium 139 Potassium 4.0 Chloride 105 Carbon Dioxide 26.8 Anion Gap 7 BUN 12 Creatinine 1.10 H Estimated GFR 61 L POC Glucose 136 H Random Glucose 107 H Calcium 8.8 Total Bilirubin 0.2 AST 18 ALT 19 Alkaline Phosphatase 111 Troponin I Less than 0.02 L Total Protein 7.6 Albumin 3.5 Urine Color Urine Clarity Urine pH Ur Specific [place] Urine Protein Urine Glucose (UA) Urine Ketones Urine Occult Blood Urine Nitrate Urine Bilirubin Urine Urobilinogen Ur Leukocyte Esterase Urine RBC Urine WBC Ur Squamous Epith Cells Ur Microscopic Review 09/15/18 09/15/18 03:11 09:00 CBC w Diff WBC RBC Hgb Hct MCV MCH MCHC RDW Plt Count MPV Neut % (Auto) Lymph % (Auto) [place] % (Auto) Eos % (Auto) Baso % (Auto) Neut # (Auto) Lymph # (Auto) [place] # (Auto) Eos # (Auto) Baso # (Auto) WBC Differential Seg Neuts % (Manual) Lymphocytes % (Manual) Monocytes % (Manual) Eosinophils % (Manual) Abs Neuts (Manual) Differential Comment Platelet Estimate Platelet Morphology Sodium Potassium Chloride Carbon Dioxide Anion Gap BUN Creatinine Estimated GFR POC Glucose Random Glucose Calcium Total Bilirubin AST ALT Alkaline Phosphatase Troponin I Less than 0.02 L Total Protein Albumin Urine Color Yellow Urine Clarity Clear Urine pH 7.0 Ur Specific [place] 1.015 Urine Protein Negative Urine Glucose (UA) Negative Urine Ketones Negative Urine Occult Blood Trace Urine Nitrate Negative Urine Bilirubin Negative Urine Urobilinogen 0.2 Ur Leukocyte Esterase Negative Urine RBC 4-15 H Urine WBC 0-5 Ur Squamous Epith Cells 0-5 Ur Microscopic Review Microscopic reviewed - Imaging Impressions Chest X-Ray 09/15/18 00:00 CONCLUSION: The heart size is mildly prominent with no pulmonary edema. Head MRI 09/15/18 00:00 CONCLUSION: 1. No acute hemorrhage, mass or infarction. 2. Mucosal thickening is now present in the left maxillary sinus. Head CT 09/15/18 02:32 CONCLUSION: 1. No acute intracranial abnormality. . Head MRA 09/15/18 09:51 CONCLUSION: 1. Negative exam. Review/Management - Diagnosis (1) Syncope Code(s): R55 - Syncope and collapse Status: Acute Current Visit: Yes - Review/Management Plan: Episode probable convulsive syncope/ vasovagal, versus new onset seizure-lesser likely without any previous history and also with low blood pressure noted. Seizure threshold may have been lowered by recent antihistamine use Blood pressure noted be 90/72 MRI brain scan negative for any acute lesion. Minimal tiny punctate lesions likely related to chronic small vessel disease. MRA [place] no significant vaso-occlusive disease Recommendation Follow-up EEG Orthostatics TSH, B12, magnesium Consider cardiac evaluation for symptoms of dyspnea on exertion Discussed with medical Behavioral modification and risk factor reduction. Weight loss, blood pressure control, blood sugar control, lipid control. Exercise No driving, operating any heavy machinery or dangerous machinery, swimming alone for at least 6 months of being seizure, spell free. (1) Syncope Qualifiers: Qualified Code(s): R55 - Syncope and collapse
--- NOTE | 2018-09-15 13:28 | P.HPFP ---
History of Present Illness Primary Care Physician: Dr. Jamie Anguiano Chief Complaint: Seizure vs vasovagal syncope History of Present Illness: This is a pleasant 62-year-old -[place] female who presented to the ER last night for syncope versus seizure. The patient actually was bringing her daughter to the ER. She stood up, felt lightheaded and then had a syncopal event with some what appeared to be seizure activity according to the ER physician. This resolved without requiring any Ativan. The patient denies any post ictal confusion, tongue biting or loss of continence. The patient does report a history of stroke in the year 1999 during which her left side was affected and she is now back to baseline. Of note the patient has been worked up this year in December 2017 as well as February 2018 for TIA with negative workup , including MRI, Doppler carotid ultrasound, CTA brain, and multiple negative 2D echocardiograms. The patient reports a stress test many years ago however I was unable to find that in her [facility] plan records. She denies any chest pain or chest pressure. She endorses slight shortness of breath at times with exertion. She rides a stationary bicycle 3 times a week. She has never smoked. She has no history of seizure disorder. In the emergency department troponin has been negative. The patient is on Norvasc, aspirin, Lipitor. She also has prediabetes. Orthostatics were ordered but have not been done. EEG has been ordered. Brain MRI was negative. The patient feels that she has returned to baseline and has no acute neurologic complaints. No paresthesias, no slurred speech, no unilateral weakness history whatsoever. The patient endorses that she has been taking a lot of vmij-ogt-eyivijf cough and cold medications for bronchitis. EKG and troponin to date have been negative. [facility] - History History Provided By: Patient - Medical History Medical History: Medical History (Last Updated 09/15/18 @ 13:43 by Eugenia El MD) H/O: hysterectomy Hyperlipidemia Prediabetes Vitamin D deficiency HTN (hypertension) Stroke - Surgical History Surgical History: Surgical History (Last Updated 09/15/18 @ 13:43 by Eugenia El MD) H/O cervical discectomy - Social History I have reviewed the patient's Social History: Yes - Tobacco History Second Hand Smoke Exposure: No Tobacco Use In Past 30 Days: No Smoking Status: Never smoker - Alcohol History How Often Do You Have a Drink Containing Alcohol: Never - Substance Use History Substance History: No History of Abuse - Travel History Recent Travel in the [place] Within the Last 8 Weeks: No Recent Travel Out of the Country Within the Last 8 Weeks: No - Immunization History Tetanus Immunization: Unsure Medications and Allergies Active Medications: Active Medications Acetaminophen (Tylenol) 650 mg PO Q4H PRN PRN Reason: Temp > 100.4 Al Hydroxide/Mg Hydroxide (Milk Of Magnesia Liq) 30 ml PO Q12H PRN PRN Reason: Mild Constipation Aspirin (Ecotrin) 81 mg PO DAILY [facility] Last Admin: 09/15/18 09:16 Dose: 81 mg Bisacodyl (Dulcolax Supp) 10 mg RECTAL DAILY PRN PRN Reason: SEVERE CONSITIPATION Sodium Chloride (Ns Inj) 1,000 mls @ 100 mls/hr IV.CONT .Q10H [facility] Last Admin: 09/15/18 08:59 Dose: 100 mls/hr Lactulose (Lactulose Liq) 30 ml PO DAILY PRN PRN Reason: SEVERE CONSITIPATION Ondansetron HCl (Zofran Inj) 4 mg IV.PUSH Q6H PRN PRN Reason: NAUSEA OR VOMITING Sennosides (Senokot) 17.2 mg PO Q12H PRN PRN Reason: Moderate Constipation Temazepam (Restoril) 15 mg PO HS PRN PRN Reason: INSOMNIA Allergies Allergy/AdvReac Type Severity Reaction Status Date / Time amoxicillin Allergy Severe HIVES Verified 09/15/18 03:22 clopidogrel Allergy Severe TONGUE Verified 09/15/18 03:22 SWELLING APPLE JUICE Allergy Unknown Hives Uncoded 12/22/07 10:05 Home Medications Medication Instructions Recorded Confirmed Type amlodipine 10 mg PO DAILY 09/15/18 09/15/18 History aspirin [Aspir-81] 81 mg PO DAILY 09/15/18 09/15/18 History [id number]-OF-nklbgwhtlza 15 ml PO Q4H PRN 09/15/18 09/15/18 History [Robitussin Cough and Cold CF] Exam Vital signs: Vital Signs 09/15/18 02:20 09/15/18 03:26 09/15/18 03:30 Temperature 97.9 F Pulse Rate 49 L 65 60 Respiratory Rate 16 16 18 Blood Pressure 90/72 L 159/77 H 146/80 H Pulse Oximetry 94 L 09/15/18 04:30 09/15/18 05:38 09/15/18 06:32 Temperature 98.0 F Pulse Rate 60 60 70 Respiratory Rate 16 18 Blood Pressure 147/73 H 129/73 119/70 Pulse Oximetry 97 97 09/15/18 07:00 09/15/18 09:57 09/15/18 12:00 Temperature 97 F L 97.2 F L Pulse Rate 62 72 81 Respiratory Rate 18 20 20 Blood Pressure 127/69 128/66 121/75 Pulse Oximetry 97 98 98 Intake & Output 09/14/18 09/15/18 09/15/18 18:59 06:59 18:59 Intake Total 1999 Output Total 1899 Balance 100 / 100 Weight 89.7 kg Intake: IV 1999 NS Inj 1,000 ML @ Wide Open IV. 1999 SIG BOLUS ONE Rx#:[id number] Output: Urine 1899 Other: Weight On Admission 89.7 kg Narrative: GENERAL: This is a well-nourished, well-developed patient, in no apparent distress. CARDIOVASCULAR: Regular rate and rhythm without murmurs, gallops, or rubs. RESPIRATORY: Clear to auscultation. Breath sounds equal bilaterally. No wheezes , rales, or rhonchi. GASTROINTESTINAL: Abdomen soft, non-tender, nondistended. Normal active bowel sounds MUSCULOSKELETAL: Extremities without clubbing, cyanosis, or edema. NEURO: Alert & Oriented x4 to person, place, time, situation. Moves all ext x4 , pupils equal and reactive to light and accommodation. Results - Labs Result diagrams: 09/15/18 02:30 09/15/18 02:30 Abnormal lab results 09/15/18 09/15/18 09/15/18 Range/Units 02:22 02:30 02:30 WBC 15.2 H (4.0-11.0) th/mm3 MCV 78.1 L (80.0-100.0) fL MCH 24.4 L (27.0-34.0) pg MCHC 31.2 L (32.0-36.0) % Eos % (Auto) 4.7 H (0.0-4.0) % Neut # (Auto) 8.0 H (1.8-7.7) th/mm3 Lymph # (Auto) 5.5 H (1.0-4.8) th/mm3 Eos # (Auto) 0.7 H (0.0-0.4) th/mm3 Eosinophils % (Manual) 7 H (0-4) % Abs Neuts (Manual) 7.9 H (1.8-7.7) th/mm3 Creatinine 1.10 H (0.50-1.00) mg/dL Estimated GFR 61 L (>89) mL/min POC Glucose 136 H (68-110) mg/dl Random Glucose 107 H (74-106) mg/dL Troponin I Less than 0.02 L (0.02-0.05) ng/mL Urine RBC (0-3) /hpf 09/15/18 09/15/18 Range/Units 03:11 09:00 WBC (4.0-11.0) th/mm3 MCV (80.0-100.0) fL MCH (27.0-34.0) pg MCHC (32.0-36.0) % Eos % (Auto) (0.0-4.0) % Neut # (Auto) (1.8-7.7) th/mm3 Lymph # (Auto) (1.0-4.8) th/mm3 Eos # (Auto) (0.0-0.4) th/mm3 Eosinophils % (Manual) (0-4) % Abs Neuts (Manual) (1.8-7.7) th/mm3 Creatinine (0.50-1.00) mg/dL Estimated GFR (>89) mL/min POC Glucose (68-110) mg/dl Random Glucose (74-106) mg/dL Troponin I Less than 0.02 L (0.02-0.05) ng/mL Urine RBC 4-15 H (0-3) /hpf Short CBC 09/15/18 Range/Units 02:30 WBC 15.2 H (4.0-11.0) th/mm3 Hgb 12.1 (11.6-15.3) gm/dL Hct 38.7 (35.0-46.0) % Plt Count 296 (150-450) th/mm3 BMP 09/15/18 02:30 Sodium 139 Potassium 4.0 Chloride 105 Carbon Dioxide 26.8 BUN 12 Creatinine 1.10 H Calcium 8.8 Cardiac Enzymes 09/15/18 09/15/18 Range/Units 02:30 09:00 Troponin I Less than 0.02 L Less than 0.02 L (0.02-0.05) ng/mL Liver Function 09/15/18 Range/Units 02:30 Total Bilirubin 0.2 (0.2-1.0) mg/dL AST 18 (15-37) U/L ALT 19 (10-53) U/L Alkaline Phosphatase 111 (45-117) U/L Albumin 3.5 (3.4-5.0) g/dL Urine 09/15/18 Range/Units 03:11 Urine Color Yellow (Yellw/Straw) Urine Clarity Clear (Clear) Urine pH 7.0 (5.0-8.5) Ur Specific [place] 1.015 (1.002-1.035) Urine Protein Negative (Neg-Trace) mg/dL Urine Glucose (UA) Negative (Negative) mg/dL - Imaging Impressions Chest X-Ray 09/15/18 00:00 CONCLUSION: The heart size is mildly prominent with no pulmonary edema. Head MRI 09/15/18 00:00 CONCLUSION: 1. No acute hemorrhage, mass or infarction. 2. Mucosal thickening is now present in the left maxillary sinus. Head CT 09/15/18 02:32 CONCLUSION: 1. No acute intracranial abnormality. . Head MRA 09/15/18 09:51 CONCLUSION: 1. Negative exam. Caprini VTE Risk Assessment Caprini VTE Risk Assessment: No/Low Risk (score <= 1) Caprini Risk Assessment Model: Point Value = 1 Point Value = 2 Point Value = 3 Point Value = 5 Age 41-60 Minor surgery BMI > 25 kg/m2 Swollen legs Varicose veins or History of unexplained or recurrent spontaneous Oral contraceptives or hormone replacement Sepsis (< 1 month) Serious lung disease, including pneumonia (< 1 month) Abnormal pulmonary function Acute myocardial infarction Congestive heart failure (< 1 month) History of inflammatory bowel disease Medical patient at bed rest Age 61-74 Arthroscopic surgery Major open surgery (> 45 min) Laparoscopic surgery (> 45 min) Malignancy Confined to bed (> 72 hours) Immobilizing plaster cast Central venous access Age >= 75 History of VTE Family history of VTE Factor V Leiden Prothrombin [id number] Lupus anticoagulant Anticardiolipin antibodies Elevated serum homocysteine Heparin-induced thrombocytopenia Other congenital or acquired thrombophilia Stroke (< 1 month) Elective arthroplasty Hip, pelvis, or leg fracture Acute spinal cord injury (< 1 month) Prophylaxis Regimen: Total Risk Factor Score Risk Level Prophylaxis Regimen 0-1 Low Early ambulation 2 Moderate Order ONE of the following: *Sequential Compression Device (SCD) *Heparin 5000 units SQ BID 3-4 Higher Order ONE of the following medications: *Heparin 5000 units SQ TID *Enoxaparin/Lovenox 40 mg SQ daily (WT < 150 kg, CrCl > 30 mL/min) *Enoxaparin/Lovenox 30 mg SQ daily (WT < 150 kg, CrCl > 10-29 mL/min) *Enoxaparin/Lovenox 30 mg SQ BID (WT < 150 kg, CrCl > 30 mL/min) AND/OR *Sequential Compression Device (SCD) 5 or more Highest Order ONE of the following medications: *Heparin 5000 units SQ TID (Preferred with Epidurals) *Enoxaparin/Lovenox 40 mg SQ daily (WT < 150 kg, CrCl > 30 mL/min) *Enoxaparin/Lovenox 30 mg SQ daily (WT < 150 kg, CrCl > 10-29 mL/min) *Enoxaparin/Lovenox 30 mg SQ BID (WT < 150 kg, CrCl > 30 mL/min) AND *Sequential Compression Device (SCD) Assessment and Plan - Assessment and Plan Syncope versus seizure. She has had extensive TIA workup within the past year and this does not sound like a TIA. In fact it sounds like vasovagal syncope to me. Because of her mild shortness of breath and remote history of negative stress test as well as risk factors. I would like to get cardiology opinion. I will order 2D echocardiogram of course EEG has been ordered. We will proceed with serial orthostatic vital signs. She is already on aspirin and Lipitor. EKG and troponin have been negative to date. We will continue her on telemetry. I did discuss the above with neurology Dr. Gilmore. If cardiology does not feel this is cardiac related I would recommend that she get some pulmonary function tests with her PCP to rule out asthma. HTN -continue Norvasc. She does have a mild leukocytosis and mildly elevated creatinine without history of chronic kidney disease. Which may be related to dehydration and we will continue with IV fluids. Repeat labs tomorrow. DVT prophylaxis with SCDs H&P: Quality - VTE Deep Vein Thrombosis/Pulmonary Embolism Present on Admission: No
[2018-09-15 14:41] LABS: C-Reactive Protein 0.77 mg/dL (0.00-0.30)
[2018-09-15 14:51] LABS: Thyroid Stimulating Hormone 0.5 uIU/mL (0.358-3.740)
--- NOTE | 2018-09-15 16:54 | P.CONCA ---
History of Present Illness Service: [facility] Cardiology Consult date: 09/15/18 Requesting Physician: Eugenia El Reason for Consult: Syncope Primary Care Provider: UNKNOWN Chief Complaint: Seizure vs vasovagal syncope History of Present Illness: 62-year-old lady developed sudden onset of lost of consciousness in ED. She came to ED because she was bringing her daughter for ear infection. While they were waiting in ED, she felt sleepy and lightheaded sleepy apparently she went down, She has no previous history of similar or seizures. Has been taking a lot of antihistamines for suspected URI symptoms. She had had 4 episodes of stroke during the last 10 years, each episode she described as unable to speak and being twisted. In ED, her BP was 90/72, She also report of dyspnea on exertion. Apparently has had a stress test in the past which was negative. ECG showed no arrhythmia, no acute ischemic changes MRI/MRA brain negative. CxR negative. Troponin negative. Review of Systems All other systems reviewed negative except as stated in HPI [facility] - History History Provided By: Patient - Medical History Medical History: Medical History (Last Updated 09/15/18 @ 13:43 by Eugenia El MD) H/O: hysterectomy Hyperlipidemia Prediabetes Vitamin D deficiency HTN (hypertension) Stroke - Surgical History Surgical History: Surgical History (Last Updated 09/15/18 @ 13:43 by Eugenia El MD) H/O cervical discectomy - Tobacco History Second Hand Smoke Exposure: No Tobacco Use In Past 30 Days: No Smoking Status: Never smoker - Alcohol History How Often Do You Have a Drink Containing Alcohol: Never - Substance Use History Substance History: No History of Abuse - Travel History Recent Travel in the [place] Within the Last 8 Weeks: No Recent Travel Out of the Country Within the Last 8 Weeks: No - Immunization History Tetanus Immunization: Unsure Medications and Allergies Active Medications: Active Medications Acetaminophen (Tylenol) 650 mg PO Q4H PRN PRN Reason: Temp > 100.4 Al Hydroxide/Mg Hydroxide (Milk Of Magnesia Liq) 30 ml PO Q12H PRN PRN Reason: Mild Constipation Aspirin (Ecotrin) 81 mg PO DAILY [facility] Last Admin: 09/15/18 09:16 Dose: 81 mg Bisacodyl (Dulcolax Supp) 10 mg RECTAL DAILY PRN PRN Reason: SEVERE CONSITIPATION Sodium Chloride (Ns Inj) 1,000 mls @ 100 mls/hr IV.CONT .Q10H [facility] Last Admin: 09/15/18 08:59 Dose: 100 mls/hr Lactulose (Lactulose Liq) 30 ml PO DAILY PRN PRN Reason: SEVERE CONSITIPATION Ondansetron HCl (Zofran Inj) 4 mg IV.PUSH Q6H PRN PRN Reason: NAUSEA OR VOMITING Sennosides (Senokot) 17.2 mg PO Q12H PRN PRN Reason: Moderate Constipation Temazepam (Restoril) 15 mg PO HS PRN PRN Reason: INSOMNIA Allergies Allergy/AdvReac Type Severity Reaction Status Date / Time amoxicillin Allergy Severe HIVES Verified 09/15/18 03:22 clopidogrel Allergy Severe TONGUE Verified 09/15/18 03:22 SWELLING APPLE JUICE Allergy Unknown Hives Uncoded 12/22/07 10:05 Home Medications Medication Instructions Recorded Confirmed Type amlodipine 10 mg PO DAILY 09/15/18 09/15/18 History aspirin [Aspir-81] 81 mg PO DAILY 09/15/18 09/15/18 History vhvthqvssinus-CP-tjifefgamsj 15 ml PO Q4H PRN 09/15/18 09/15/18 History [Robitussin Cough and Cold CF] Exam Vital signs: Vital Signs 09/15/18 02:20 09/15/18 03:26 09/15/18 03:30 Temperature 97.9 F Pulse Rate 49 L 65 60 Respiratory Rate 16 16 18 Blood Pressure 90/72 L 159/77 H 146/80 H Pulse Oximetry 94 L 09/15/18 04:30 09/15/18 05:38 09/15/18 06:32 Temperature 98.0 F Pulse Rate 60 60 70 Respiratory Rate 16 18 Blood Pressure 147/73 H 129/73 119/70 Pulse Oximetry 97 97 09/15/18 07:00 09/15/18 09:57 09/15/18 12:00 Temperature 97 F L 97.2 F L Pulse Rate 62 72 81 Respiratory Rate 18 20 20 Blood Pressure 127/69 128/66 121/75 Pulse Oximetry 97 98 98 09/15/18 15:52 Temperature 96.9 F L Pulse Rate 72 Respiratory Rate 20 Blood Pressure 122/68 Pulse Oximetry 98 Intake & Output 09/14/18 09/15/18 09/15/18 18:59 06:59 18:59 Intake Total 1999 Output Total 1899 Balance 100 / 100 Weight 89.7 kg Intake: IV 1999 NS Inj 1,000 ML @ Wide Open IV. 1999 SIG BOLUS ONE Rx#:[id number] Output: Urine 1899 Other: Weight On Admission 89.7 kg - Constitutional no acute distress - Routine HEENT Exam Head: Present: normocephalic, atraumatic Eye: Present: EOMI, PERRL, normal accommodation, conjunctivae pink ENT: Present: mucous membranes moist - Routine Neck Exam Present: supple, full ROM. Absent: JVD, carotid bruit - Routine Chest/Breast/Axilla Exam Chest wall: Absent: tenderness - Routine Respiratory Exam Present: CTA bilaterally - Routine Cardiovascular Exam Present: RRR, S1, S2, murmur (LLSB 2/6 systolic) - Routine Abdominal Exam Present: soft, normoactive bowel sounds. Absent: tenderness - Routine Extremities Exam Present: full ROM, normal capillary refill. Absent: edema - Routine Skin Exam Present: intact, dry, warm - Routine Neurological Exam Present: alert, oriented X3, CN II-XII intact Results 09/15/18 02:30 09/15/18 02:30 Cardiac Enzymes 09/15/18 09/15/18 09/15/18 Range/Units 02:30 09:00 13:00 AST 18 (15-37) U/L Troponin I Less than 0.02 L Less than 0.02 L Less than 0.02 L (0.02-0.05) ng/mL CBC 09/15/18 Range/Units 02:30 WBC 15.2 H (4.0-11.0) th/mm3 RBC 4.96 (4.00-5.30) mil/mm3 Hgb 12.1 (11.6-15.3) gm/dL Hct 38.7 (35.0-46.0) % Plt Count 296 (150-450) th/mm3 Neut # (Auto) 8.0 H (1.8-7.7) th/mm3 Lymph # (Auto) 5.5 H (1.0-4.8) th/mm3 [place] # (Auto) 0.9 (0.0-0.9) th/mm3 Eos # (Auto) 0.7 H (0.0-0.4) th/mm3 Baso # (Auto) 0.1 (0.0-0.2) th/mm3 Comprehensive Metabolic Panel 09/15/18 Range/Units 02:30 Sodium 139 (136-145) meq/L Potassium 4.0 (3.5-5.1) meq/L Chloride 105 (98-107) meq/L Carbon Dioxide 26.8 (21.0-32.0) meq/L BUN 12 (7-18) mg/dL Creatinine 1.10 H (0.50-1.00) mg/dL Calcium 8.8 (8.5-10.1) mg/dL AST 18 (15-37) U/L ALT 19 (10-53) U/L Alkaline Phosphatase 111 (45-117) U/L Total Protein 7.6 (6.4-8.2) g/dL Albumin 3.5 (3.4-5.0) g/dL Intake and Output 09/15/18 09/15/18 09/15/18 06:59 14:59 22:59 Intake Total 1999 Output Total 1900 / 1900 Balance 100 / 100 Intake: IV 1999 NS Inj 1,000 ML @ Wide Open IV. 1999 SIG BOLUS ONE Rx#:[id number] Output: Urine 1900 / 1900 Other: Weight 89.7 kg Weight On Admission 89.7 kg Patient Weight 09/16/18 06:59 Weight 89.7 kg - Imaging and Cardiology Imaging: Impressions Chest X-Ray 09/15/18 00:00 CONCLUSION: The heart size is mildly prominent with no pulmonary edema. Head MRI 09/15/18 00:00 CONCLUSION: 1. No acute hemorrhage, mass or infarction. 2. Mucosal thickening is now present in the left maxillary sinus. Head CT 09/15/18 02:32 CONCLUSION: 1. No acute intracranial abnormality. . Head MRA 09/15/18 09:51 CONCLUSION: 1. Negative exam. Assessment and Plan - Assessment (1) Seizure Code(s): R56.9 - Unspecified convulsions Status: Acute (2) Syncope Code(s): R55 - Syncope and collapse Status: Acute - Plan 1. Syncope versus Seizure So far negative brain MRI/MRA, negative ECG and troponin Will need youth nutritional monitor to detect arrhythmia. will need Echocardiogram If negative Seizure work up , may need event monitor. [facility] cardiology will continue the care of this patient tomorrow. (2) Syncope Qualifiers: Syncope type: unspecified Qualified Code(s): R55 - Syncope and collapse
--- NOTE | 2018-09-15 22:09 | ECG ---
Date Performed: 09/15/2018 Time Performed: 02:28:34 PTAGE: 62 years EKG: SINUS BRADYCARDIA MODERATE VOLTAGE CRITERIA FOR LVH, CONSIDER NORMAL VARIANT BORDERLINE ECG PREVIOUS TRACING : 01/10/2018 21.54 Since the previous tracing, no significant change noted DOCTOR: Shelley Lucero Interpretating Date/Time 09/15/2018 22:08:59
[2018-09-16 05:36] LABS: Baso # (Auto) 0.1 th/mm3 (0.0-0.2); Baso % (Auto) 0.5 % (0.0-2.0); Eos # (Auto) 0.4 th/mm3 (0.0-0.4); Eos % (Auto) 3.7 % (0.0-4.0); Hematocrit 33.9 % (35.0-46.0); Hemoglobin 10.7 gm/dL (11.6-15.3); Lymph # (Auto) 3.1 th/mm3 (1.0-4.8); Mean Corpuscular HGB Conc 31.6 % (32.0-36.0); Mean Corpuscular Hemoglobin 24.4 pg (27.0-34.0); Mean Corpuscular Volume 77.2 fL (80.0-100.0); Mean Platelet Volume 7.9 fL (7.0-11.0); Mono # (Auto) 0.6 th/mm3 (0.0-0.9); Mono % (Auto) 5.8 % (0.0-8.0); Neut # (Auto) 6.5 th/mm3 (1.8-7.7); Platelet Count 276 th/mm3 (150-450); Red Blood Count 4.39 mil/mm3 (4.00-5.30); Red Cell Distribution Width 13.9 % (11.6-17.2); White Blood Count 10.7 th/mm3 (4.0-11.0)
[2018-09-16 05:49] LABS: Potassium 3.8 meq/L (3.5-5.1)
[2018-09-16 05:51] LABS: Calcium 8.3 mg/dL (8.5-10.1)
[2018-09-16 05:52] LABS: Carbon Dioxide 28.8 meq/L (21.0-32.0)
[2018-09-16] MEDS: Sod Chloride 0.9% Inj 1,000 ML IV.CONT SCH ×2 (06:04→16:07)
[2018-09-16 06:05] LABS: Ovalocytes 1+
[2018-09-16 06:06] LABS: Platelet Estimate Normal (Normal); Platelet Morphology Normal (Normal)
--- NOTE | 2018-09-16 07:50 | P.PNCA ---
Subjective Interval history: Feeling well today with no complaints. Has been ambulating to the restroom with no issues. Reports sudden episode of loss of consciousness after getting up from a chair to go sit on her daughter's bed. She denies any preceding symptoms of lightheadedness, dizziness, chest pain, palpitations. She states she suddenly woke up with lots of people around her telling her she passed out. This is the first time she is had an episode of passing out. She has been dealing with cough and cold symptoms this week. BP and kidney function have normalized today with IVF and holding amlodipine. Medications and Allergies Active Medications: Active Medications Acetaminophen (Tylenol) 650 mg PO Q4H PRN PRN Reason: Temp > 100.4 Al Hydroxide/Mg Hydroxide (Milk Of Magnkera Liq) 30 ml PO Q12H PRN PRN Reason: Mild Constipation Aspirin (Ecotrin) 81 mg PO DAILY [facility] Last Admin: 09/15/18 09:16 Dose: 81 mg Bisacodyl (Dulcolax Supp) 10 mg RECTAL DAILY PRN PRN Reason: SEVERE CONSITIPATION Sodium Chloride (Ns Inj) 1,000 mls @ 100 mls/hr IV.CONT .Q10H [facility] Last Admin: 09/16/18 06:04 Dose: 100 mls/hr Lactulose (Lactulose Liq) 30 ml PO DAILY PRN PRN Reason: SEVERE CONSITIPATION Ondansetron HCl (Zofran Inj) 4 mg IV.PUSH Q6H PRN PRN Reason: NAUSEA OR VOMITING Sennosides (Senokot) 17.2 mg PO Q12H PRN PRN Reason: Moderate Constipation Temazepam (Restoril) 15 mg PO HS PRN PRN Reason: INSOMNIA Allergies Allergy/AdvReac Type Severity Reaction Status Date / Time amoxicillin Allergy Severe HIVES Verified 09/15/18 03:22 clopidogrel Allergy Severe TONGUE Verified 09/15/18 03:22 SWELLING APPLE JUICE Allergy Unknown Hives Uncoded 12/22/07 10:05 Home Medications Medication Instructions Recorded Confirmed Type amlodipine 10 mg PO DAILY 09/15/18 09/15/18 History aspirin [Aspir-81] 81 mg PO DAILY 09/15/18 09/15/18 History vzilznijhwsmn-ED-yfnddembzuy 15 ml PO Q4H PRN 10/21/18 10/21/18 History [Robitussin Cough and Cold CF] Physical Exam Vital signs: Vital Signs 09/15/18 09:57 09/15/18 12:00 09/15/18 15:52 Temperature 97 F L 97.2 F L 96.9 F L Pulse Rate 72 81 72 Respiratory Rate 20 20 20 Blood Pressure 128/66 121/75 122/68 Pulse Oximetry 98 98 98 09/15/18 20:00 09/16/18 00:00 09/16/18 04:00 Temperature 97.3 F L 96.3 F L 96.5 F L Pulse Rate 74 59 L 61 Respiratory Rate 20 20 20 Blood Pressure 124/71 120/69 123/73 Pulse Oximetry 98 98 98 Intake & Output 09/15/18 09/16/18 09/16/18 18:59 06:59 18:59 Intake Total 1480 / 1480 1720 / 1720 Balance 1480 / 1480 1720 / 1720 Weight 197 lb 12.074 oz 198 lb 13.711 oz Intake: IV 1000 / 1000 1000 / 1000 NS Inj 1,000 ML @ 100 mls/hr IV 1000 / 1000 1000 / 1000 .CONT .Q10H JEAN PAUL Rx#:[id number] Oral 480 / 480 720 / 720 Other: # Voids 5 3 Weight On Admission 197 lb 12.074 oz Narrative: GENERAL: Well-developed well-nourished. In no acute distress. NECK: No carotid bruits. No JVD. CARDIOVASCULAR: Regular rate and rhythm. 1/6 systolic murmur appreciated. RESPIRATORY: No accessory muscle use. Clear to auscultation. Breath sounds equal bilaterally. MUSCULOSKELETAL: No clubbing or cyanosis. No edema. NEUROLOGICAL: Awake and alert. Normal speech. Results 09/16/18 05:10 09/16/18 05:10 Cardiac Enzymes 09/15/18 09/15/18 09/15/18 Range/Units 02:30 09:00 13:00 AST 18 (15-37) U/L Troponin I Less than 0.02 L Less than 0.02 L Less than 0.02 L (0.02-0.05) ng/mL CBC 09/15/18 09/16/18 Range/Units 02:30 05:10 WBC 15.2 H 10.7 (4.0-11.0) th/mm3 RBC 4.96 4.39 (4.00-5.30) mil/mm3 Hgb 12.1 10.7 L (11.6-15.3) gm/dL Hct 38.7 33.9 L (35.0-46.0) % Plt Count 296 276 (150-450) th/mm3 Neut # (Auto) 8.0 H 6.5 (1.8-7.7) th/mm3 Lymph # (Auto) 5.5 H 3.1 (1.0-4.8) th/mm3 [place] # (Auto) 0.9 0.6 (0.0-0.9) th/mm3 Eos # (Auto) 0.7 H 0.4 (0.0-0.4) th/mm3 Baso # (Auto) 0.1 0.1 (0.0-0.2) th/mm3 Comprehensive Metabolic Panel 09/15/18 09/16/18 Range/Units 02:30 05:10 Sodium 139 142 (136-145) meq/L Potassium 4.0 3.8 (3.5-5.1) meq/L Chloride 105 107 (98-107) meq/L Carbon Dioxide 26.8 28.8 (21.0-32.0) meq/L BUN 12 13 (7-18) mg/dL Creatinine 1.10 H 0.93 (0.50-1.00) mg/dL Calcium 8.8 8.3 L (8.5-10.1) mg/dL AST 18 (15-37) U/L ALT 19 (10-53) U/L Alkaline Phosphatase 111 (45-117) U/L Total Protein 7.6 (6.4-8.2) g/dL Albumin 3.5 (3.4-5.0) g/dL Intake and Output 09/15/18 09/16/18 09/16/18 22:59 06:59 14:59 Intake Total 1480 / 1480 1720 / 1720 Balance 1480 / 1480 1720 / 1720 Intake: IV 1000 / 1000 1000 / 1000 NS Inj 1,000 ML @ 100 mls/hr IV 1000 / 1000 1000 / 1000 .CONT .Q10H JEAN PAUL Rx#:[id number] Oral 480 / 480 720 / 720 Other: # Voids 5 3 Weight 198 lb 13.711 oz - Imaging and Cardiology Imaging: Impressions Chest X-Ray 09/15/18 00:00 CONCLUSION: The heart size is mildly prominent with no pulmonary edema. Head MRI 09/15/18 00:00 CONCLUSION: 1. No acute hemorrhage, mass or infarction. 2. Mucosal thickening is now present in the left maxillary sinus. Head CT 09/15/18 02:32 CONCLUSION: 1. No acute intracranial abnormality. . Head MRA 09/15/18 09:51 CONCLUSION: 1. Negative exam. Assessment and Plan - Plan Syncope: Neuro workup negative to date. Has been seen by neurology who suspects convulsive syncope; EEG pending to rule out seizure. Negative ECG and troponin. Telemetry monitoring, unremarkable on review overnight 2015 echocardiogram normal, repeat echo pending. Recommend outpatient 24-hour Holter Nothing further to add from a cardiology perspective at this time we will sign off. Please feel free to call with any questions. Discussed Condition With: Patient, Dr. Cazares
--- NOTE | 2018-09-16 09:58 | P.DS ---
Date of admission: 09/15/18 05:44 Primary care physician: UNKNOWN Brief History from admission: This is a pleasant 62-year-old -[place] female who presented to the ER last night for syncope versus seizure. The patient actually was bringing her daughter to the ER. She stood up, felt lightheaded and then had a syncopal event with some what appeared to be seizure activity according to the ER physician. This resolved without requiring any Ativan. Her blood pressure was low at the time of the syncope/seizure. The patient denies any post ictal confusion, tongue biting or loss of continence. The patient does report a history of stroke in the year 1999 during which her left side was affected and she is now back to baseline. Of note the patient has been worked up this year in December 2017 as well as February 2018 for TIA with negative workup, including MRI, Doppler carotid ultrasound, CTA brain, and multiple negative 2D echocardiograms. The patient reports a stress test many years ago however I was unable to find that in her [facility] plan records. She denies any chest pain or chest pressure. She endorses slight shortness of breath at times with exertion. She rides a stationary bicycle 3 times a week. She has never smoked. She has no history of seizure disorder. In the emergency department troponin has been negative. The patient is on Norvasc, aspirin, Lipitor. She also has prediabetes. Orthostatics were ordered but have not been done. EEG has been ordered. Brain MRI was negative. The patient feels that she has returned to baseline and has no acute neurologic complaints. No paresthesias, no slurred speech, no unilateral weakness history whatsoever. The patient endorses that she has been taking a lot of [id number] cough and cold medications for bronchitis. EKG and troponin to date have been negative. DS: Diagnosis - Discharge Diagnosis (1) Syncope Status: Acute DS: Summary Hospital Course: The patient was admitted to the hospital. She had MRI brain, head CT, electrocardiogram, troponins, chest x-ray, head MRA which were all negative. Head MRA was also negative. Neurology was consulted. Cardiology was also consulted. Cardiology did not feel that this was related to the heart at all. Neurology Dr. Gilmore thought this was likely a convulsive syncope/vasovagal likely brought on with the low blood pressure which may have been lowered by recent antihistamine use. She stood up, felt lightheaded and then had a syncopal event with some what appeared to be seizure activity according to the ER physician. This resolved without requiring any Ativan. Her blood pressure was low at the time of the syncope/seizure. The patient is now feeling back to baseline. Her mild renal insufficiency and blood pressure have improved with holding her amlodipine and giving her IV fluids. The only further test that is pending is the EEG. If that is negative she may go home. I recommend that she continue to hold her amlodipine until she gets in to see her PCP Dr. Jamie Dominguez who I recommend she see in 2-3 days. Also recommended to avoid any cough or cold medicine [id number]. Patient voices clear understanding of the plan. - Time Spent with Patient Total time spent providing and/or coordinating discharge services: Less than 30 minutes - Quality: VTE Deep Vein Thrombosis/Pulmonary Embolism Present on Admission: No Exam Vital signs: Vital Signs 09/15/18 09:57 09/15/18 12:00 09/15/18 15:52 Temperature 97 F L 97.2 F L 96.9 F L Pulse Rate 72 81 72 Respiratory Rate 20 20 20 Blood Pressure 128/66 121/75 122/68 Pulse Oximetry 98 98 98 09/15/18 20:00 09/16/18 00:00 09/16/18 04:00 Temperature 97.3 F L 96.3 F L 96.5 F L Pulse Rate 74 59 L 61 Respiratory Rate 20 20 20 Blood Pressure 124/71 120/69 123/73 Pulse Oximetry 98 98 98 09/16/18 08:00 Temperature 99.7 F H Pulse Rate 74 Respiratory Rate 18 Blood Pressure 130/80 Pulse Oximetry 97 Intake & Output 09/15/18 09/16/18 09/16/18 18:59 06:59 18:59 Intake Total 1480 / 1480 1720 / 1720 Balance 1480 / 1480 1720 / 1720 Weight 89.7 kg 90.2 kg Intake: IV 1000 / 1000 1000 / 1000 NS Inj 1,000 ML @ 100 mls/hr IV 1000 / 1000 1000 / 1000 .CONT .Q10H JENA PAUL Rx#:[id number] Oral 480 / 480 720 / 720 Other: # Voids 5 3 Weight On Admission 89.7 kg Results Procedures completed during hospitalization: EEG, 2d echo Labs on day of discharge: Labs from last 24 hours 09/16/18 09/16/18 09/15/18 05:10 05:10 13:00 CBC w Diff Slide review pending WBC 10.7 RBC 4.39 Hgb 10.7 L Hct 33.9 L MCV 77.2 L MCH 24.4 L MCHC 31.6 L RDW 13.9 Plt Count 276 MPV 7.9 Neut % (Auto) 61.0 Lymph % (Auto) 29.0 [place] % (Auto) 5.8 Eos % (Auto) 3.7 Baso % (Auto) 0.5 Neut # (Auto) 6.5 Lymph # (Auto) 3.1 [place] # (Auto) 0.6 Eos # (Auto) 0.4 Baso # (Auto) 0.1 WBC Differential . Diff Scan Auto diff confirmed Differential Comment . Platelet Estimate Normal Platelet Morphology Normal Ovalocytes 1+ H Sodium 142 Potassium 3.8 Chloride 107 Carbon Dioxide 28.8 Anion Gap 6 BUN 13 Creatinine 0.93 Estimated GFR 74 L Random Glucose 102 Calcium 8.3 L Troponin I C-Reactive Protein 0.77 H Vitamin B12 257 TSH 0.500 09/15/18 09/15/18 13:00 09:00 CBC w Diff WBC RBC Hgb Hct MCV MCH MCHC RDW Plt Count MPV Neut % (Auto) Lymph % (Auto) [place] % (Auto) Eos % (Auto) Baso % (Auto) Neut # (Auto) Lymph # (Auto) [place] # (Auto) Eos # (Auto) Baso # (Auto) WBC Differential Diff Scan Differential Comment Platelet Estimate Platelet Morphology Ovalocytes Sodium Potassium Chloride Carbon Dioxide Anion Gap BUN Creatinine Estimated GFR Random Glucose Calcium Troponin I Less than 0.02 L Less than 0.02 L C-Reactive Protein Vitamin B12 TSH - Impressions ITS Impressions Chest X-Ray 09/15/18 00:00 CONCLUSION: The heart size is mildly prominent with no pulmonary edema. Head MRI 09/15/18 00:00 CONCLUSION: 1. No acute hemorrhage, mass or infarction. 2. Mucosal thickening is now present in the left maxillary sinus. Head CT 09/15/18 02:32 CONCLUSION: 1. No acute intracranial abnormality. . Head MRA 09/15/18 09:51 CONCLUSION: 1. Negative exam. Discharge Plan - Discharge Disposition Patient Disposition: 01 Discharge Home - Discharge Condition Condition: Stable - Discharge Order Discharge Orders: Discharge Order (Routine); Ordered 09/16/18 Ordered By: Eugenia El Hospitalist Clear for Discharge (Routine); Ordered 09/16/18 Ordered By: Eugenia El - Discharge Details Anticipated Discharge Date: 09/16/18 Discharge Comment: Call EEG results to Dr. El prior to discharge - Physicians Team Primary Care Provider: UNKNOWN, Attending Provider: Eugenia El Other Providers: Jacobo Gilmore MD ; Wing Ilene Jones MD
--- NOTE | 2018-09-16 10:16 | P.PNNEU ---
Subjective Subjective Comments: No cp, no dyspnea, no davis, no focal weakness, no vision loss Active Medications: Active Medications Acetaminophen (Tylenol) 650 mg PO Q4H PRN PRN Reason: Temp > 100.4 Al Hydroxide/Mg Hydroxide (Milk Of Magnesia Liq) 30 ml PO Q12H PRN PRN Reason: Mild Constipation Aspirin (Ecotrin) 81 mg PO DAILY [facility] Last Admin: 09/16/18 09:32 Dose: 81 mg Bisacodyl (Dulcolax Supp) 10 mg RECTAL DAILY PRN PRN Reason: SEVERE CONSITIPATION Sodium Chloride (Ns Inj) 1,000 mls @ 100 mls/hr IV.CONT .Q10H [facility] Last Admin: 09/16/18 06:04 Dose: 100 mls/hr Lactulose (Lactulose Liq) 30 ml PO DAILY PRN PRN Reason: SEVERE CONSITIPATION Ondansetron HCl (Zofran Inj) 4 mg IV.PUSH Q6H PRN PRN Reason: NAUSEA OR VOMITING Sennosides (Senokot) 17.2 mg PO Q12H PRN PRN Reason: Moderate Constipation Temazepam (Restoril) 15 mg PO HS PRN PRN Reason: INSOMNIA Allergies/Adverse Reactions: Allergies Allergy/AdvReac Type Severity Reaction Status Date / Time amoxicillin Allergy Severe HIVES Verified 09/15/18 03:22 clopidogrel Allergy Severe TONGUE Verified 09/15/18 03:22 SWELLING APPLE JUICE Allergy Unknown Hives Uncoded 12/22/07 10:05 Review of Systems All other systems reviewed negative except as stated in HPI Physical Exam Vital signs: Vital Signs 09/15/18 12:00 09/15/18 15:52 09/15/18 20:00 Temperature 97.2 F L 96.9 F L 97.3 F L Pulse Rate 81 72 74 Respiratory Rate 20 20 20 Blood Pressure 121/75 122/68 124/71 Pulse Oximetry 98 98 98 09/16/18 00:00 09/16/18 04:00 09/16/18 08:00 Temperature 96.3 F L 96.5 F L 99.7 F H Pulse Rate 59 L 61 74 Respiratory Rate 20 20 18 Blood Pressure 120/69 123/73 130/80 Pulse Oximetry 98 98 97 Intake & Output 09/15/18 09/16/18 09/16/18 18:59 06:59 18:59 Intake Total 1480 / 1480 1720 / 1720 Balance 1480 / 1480 1720 / 1720 Weight 89.7 kg 90.2 kg Intake: IV 1000 / 1000 1000 / 1000 NS Inj 1,000 ML @ 100 mls/hr IV 1000 / 1000 1000 / 1000 .CONT .Q10H JEAN PAUL Rx#:[id number] Oral 480 / 480 720 / 720 Other: # Voids 5 3 Weight On Admission 89.7 kg Narrative: GENERAL: in NAD, SKIN: Warm and dry. HEAD: Atraumatic. Normocephalic. EYES: Pupils equal and round. No scleral icterus. ENT: No nasal bleeding or discharge. NECK: Trachea midline. No JVD. GASTROINTESTINAL: Abdomen soft, non-tender, nondistended. MUSCULOSKELETAL: Extremities without clubbing, cyanosis, or edema. No obvious deformities. NEUROLOGICAL: Awake and alert. No aphasia, oriented x3, fluent articulate, No facial asymmetry, OU 3-2mm, OU opacities noted, Eomi, VFF, No drift, Motor grossly within normal limits. Five out of 5 muscle strength in the arms and legs. PSYCHIATRIC: Appropriate mood and affect; insight and judgment normal. - Constitutional no acute distress - Routine HEENT Exam Head: Present: normocephalic Eye: Present: EOMI Objective Laboratory Results - last 24 hr 09/15/18 09/15/18 09/15/18 09:00 13:00 13:00 CBC w Diff WBC RBC Hgb Hct MCV MCH MCHC RDW Plt Count MPV Neut % (Auto) Lymph % (Auto) [place] % (Auto) Eos % (Auto) Baso % (Auto) Neut # (Auto) Lymph # (Auto) [place] # (Auto) Eos # (Auto) Baso # (Auto) WBC Differential Diff Scan Differential Comment Platelet Estimate Platelet Morphology Ovalocytes Sodium Potassium Chloride Carbon Dioxide Anion Gap BUN Creatinine Estimated GFR Random Glucose Calcium Troponin I Less than 0.02 L Less than 0.02 L C-Reactive Protein 0.77 H Vitamin B12 257 TSH 0.500 09/16/18 09/16/18 05:10 05:10 CBC w Diff Slide review pending WBC 10.7 RBC 4.39 Hgb 10.7 L Hct 33.9 L MCV 77.2 L MCH 24.4 L MCHC 31.6 L RDW 13.9 Plt Count 276 MPV 7.9 Neut % (Auto) 61.0 Lymph % (Auto) 29.0 [place] % (Auto) 5.8 Eos % (Auto) 3.7 Baso % (Auto) 0.5 Neut # (Auto) 6.5 Lymph # (Auto) 3.1 [place] # (Auto) 0.6 Eos # (Auto) 0.4 Baso # (Auto) 0.1 WBC Differential . Diff Scan Auto diff confirmed Differential Comment . Platelet Estimate Normal Platelet Morphology Normal Ovalocytes 1+ H Sodium 142 Potassium 3.8 Chloride 107 Carbon Dioxide 28.8 Anion Gap 6 BUN 13 Creatinine 0.93 Estimated GFR 74 L Random Glucose 102 Calcium 8.3 L Troponin I C-Reactive Protein Vitamin B12 TSH Review/Management - Diagnosis (1) Syncope Code(s): R55 - Syncope and collapse Status: Acute Current Visit: Yes - Review/Management Plan: Episode probable convulsive syncope/ vasovagal, versus new onset seizure-lesser likely without any previous history and also with low blood pressure noted. Seizure threshold may have been lowered by recent antihistamine use Blood pressure noted be 90/72 MRI brain scan negative for any acute lesion. Minimal tiny punctate lesions likely related to chronic small vessel disease. MRA [place] no significant vaso-occlusive disease Recommendation Follow-up EEG; pending Seen by cardiology Low normal B12; should consider B12 supplementation Discharge planning No driving until seen in the outpatient setting Behavioral modification and risk factor reduction. Weight loss, blood pressure control, blood sugar control, lipid control. Exercise No driving, operating any heavy machinery or dangerous machinery, swimming alone for at least 6 months of being seizure, spell free. (1) Syncope Qualifiers: Syncope type: unspecified Qualified Code(s): R55 - Syncope and collapse
--- NOTE | 2018-09-16 13:04 | ECHRPT ---
Indication: Syncope CONCLUSIONS Normal left ventricular size. Wall thickness is normal. The left ventricular systolic function is normal with an estimated ejection fraction in the range of 55-60%. There is trace tricuspid valve regurgitation. The estimated pulmonary arterial pressure is 28 mmHg. BP: / HR: Rhythm: MEASUREMENTS (Male / Female) Normal Values Technical Quality:Technically difficult study 2D ECHO LV Diastolic Diameter PLAX 4.2 cm 4.2 - 5.9 / 3.9 - 5.3 cm LV Systolic Diameter PLAX 2.6 cm IVS Diastolic Thickness 0.9 cm 0.6 - 1.0 / 0.6 - 0.9 cm LVPW Diastolic Thickness 0.9 cm 0.6 - 1.0 / 0.6 - 0.9 cm LV Relative Wall Thickness 0.4 RV Internal Dim ED PLAX 2.9 cm LVOT Diameter 1.8 cm Aortic Root Diameter 2.4 cm LA Systolic Diameter LX 3.2 cm 3.0 - 4.0 / 2.7 - 3.8 cm DOPPLER AV Peak Velocity 171.0 cm/s AV Peak Gradient 11.7 mmHg LVOT Peak Velocity 156.0 cm/s LVOT Peak Gradient 9.7 mmHg AV Area Cont Eq pk 2.3 cm Mitral E Point Velocity 83.9 cm/s Mitral A Point Velocity 86.9 cm/s Mitral E to A Ratio 1.0 LV E' Lateral Velocity 10.0 cm/s Mitral E to LV E' Lateral Ratio 8.4 LV E' Septal Velocity 8.1 cm/s Mitral E to LV E' Septal Ratio 10.4 TR Peak Velocity 211.0 cm/s TR Peak Gradient 17.8 mmHg Right Atrial Pressure 10.0 mmHg Pulmonary Artery Systolic Pressu 27.8 mmHg Right Ventricular Systolic Press 27.8 mmHg PV Peak Velocity 78.7 cm/s PV Peak Gradient 2.5 mmHg FINDINGS LEFT VENTRICLE Normal left ventricular size. Wall thickness is normal. The left ventricular systolic function is normal with an estimated ejection fraction in the range of 55-60%. RIGHT VENTRICLE Normal right ventricular size and systolic function. LEFT ATRIUM The left atrial size is normal. RIGHT ATRIUM The right atrial size is normal. ATRIAL SEPTUM Normal atrial septal thickness without atrial level shunting by limited color doppler interrogation. AORTA The aortic root and proximal ascending aorta are normal in size on limited imaging. MITRAL VALVE Structurally normal mitral valve. No mitral valve stenosis or regurgitation. AORTIC VALVE Trileaflet aortic valve. TRICUSPID VALVE There is trace tricuspid valve regurgitation. The estimated pulmonary arterial pressure is 28 mmHg. PULMONARY VALVE No pulmonary valve regurgitation or stenosis. VESSELS The inferior vena cava is normal in size. PERICARDIUM No pericardial effusion. Mikael Cazares MD, FACC (Electronically Signed) Final Date:16 September 2018 13:03
[2018-09-16 18:32] VITALS: PULSE 83
[2018-09-16 20:19] VITALS: BP 117/71; RESP 20; TEMP 98.4; O2SAT 96
--- NOTE | 2018-09-16 20:32 | MG ---
cc: Riley Mathis MD EEG NUMBER: [id number] INDICATION: A 62-year-old. MRI negative. History of syncope. An 8 Hz, 60 microvolt symmetric rhythm is seen both posterior and diffusely. Photic stimulation is performed without significant posterior driving. Hyperventilation was not performed. The patient fell asleep and had some snoring, but did not quite reach stage II sleep. No epileptiform or seizure activity was noted. There were no hemisphere asymmetries. IMPRESSION: Normal awake and sleep electroencephalogram. No evidence for a focal or diffuse abnormality. Riley Mathis MD DJM/sv , 07:55 PM , 07:59 PM
== END 2018-09-16 21:22 | disposition left against medical advice (07) ==
LOC: PHED 02:19 → INTOOBSV 05:44 → PHEDA 05:44 → PH3 08:30
PROVIDERS: ADMIT Family Medicine; ATTEND Family Medicine
DX: Z79.82 Long term (current) use of aspirin; E78.5 Hyperlipidemia, unspecified; J40 Bronchitis, not specified as acute or chronic; I25.2 Old myocardial infarction; Z86.73 Personal history of transient ischemic attack (TIA), and cerebral infarction without residual deficits; R55 Syncope and collapse; H66.90 Otitis media, unspecified, unspecified ear; I10 Essential (primary) hypertension; Z90.710 Acquired absence of both cervix and uterus; R73.03 Prediabetes; Z79.899 Other long term (current) drug therapy; J06.9 Acute upper respiratory infection, unspecified; Z88.0 Allergy status to penicillin